=== PATIENT | male | born 1955 | race Caucasian/White ===

== ENCOUNTER 2019-08-05 17:21 | Observation (INO) | payer BC, SELFPAY ==
[2019-08-05] VITALS (10 sets, daily range): BP systolic 117–189; BP diastolic 82–107; PULSE 59–78; RESP 13–20; TEMP 36.6–36.8; O2SAT 97–100; BMI 28.5
--- NOTE | ~2019-08-05 | MR_ITS ---
EXAMINATION: MR brain/brain stem wo con EXAM DATE: 08/06/2019 17:31 INDICATION: Ataxia. TECHNIQUE: Magnetic resonance imaging (MRI) of the brain/brain stem obtained without contrast. Sagitt al T1, axial diffusion, gradient echo (T2*), T1, T2, FLAIR sequences obtained. There are no prior s tudies for comparison. FINDINGS: There are no areas of restricted diffusion to suggest acute infarction. There is no acute hemorrhage seen on the T2*, a hemosiderin sensitive sequence. No intraparenchymal brain mass lesion. 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 There is mild periventricular and subcortical T2/F LAIR signal hyperintensity, nonspecific but probably related to small vessel ischemic disease (microa ngiopathy). There are no extra-axial collections. Flow voids are seen in the cerebral arteries on t he T2-weighted sequences consistent with their expected patency. The orbits are unremarkable. Soft tissue is unremarkable. IMPRESSION: 1. 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 2. Mild microangiopathy. Reviewed, dictated and finalized at location A.
--- NOTE | ~2019-08-05 | XR_ITS ---
EXAMINATION: XR chest 1V portable DATE: 08/05/2019 19:24 INDICATION: Chest pain TECHNIQUE: frontal view of the chest was obtained. COMPARISON: Chest radiograph dated 03/09/2010 FINDINGS: Prior median sternotomy and left thoracotomy with multiple surgical clips along the left fourth inter costal space. Aortic valve repair. Multiple additional surgical clips in the region of the proximal d escending thoracic aorta. Lungs are clear with no focal airspace opacities, pulmonary edema, pleural effusion or pneumothorax. The cardiomediastinal silhouette is normal. IMPRESSION: 1. No acute cardiopulmonary disease. Reviewed, dictated and finalized at location A.
--- NOTE | ~2019-08-05 | CT_ITS ---
EXAMINATION: CTA BRAIN/CAROTID DATE: 08/05/2019 19:08 INDICATION: Dizziness. TECHNIQUE: Computed tomographic angiography (CTA) of the head and neck was performed with 100 mL Omni paque-350 intravenous contrast. Multiplanar reconstructions and maximum intensity projection 3D-recon structions of the carotid arteries and of the intracranial arteries were created by the technologist on a separate workstation. Precontrast CT of the head was also obtained. Automated exposure control and iterative reconstruction technique were employed.The dose-length product was 1758.30 mGy-cm. COMPARISON: None. FINDINGS: Carotid arteries: There is 0% stenosis of the right carotid bulb relative to normal distal artery lumen diameter (NASCE T criteria). There is 0% stenosis of the left carotid bulb relative to normal distal artery lumen kayden meter. 50-60% stenosis at the origin of the left vertebral artery. Multiple surgical clips along the aortic arch as well as a circumferential region of high attenuation material around the proximal desc ending thoracic aorta immediately after the takeoff of the left subclavian artery is likely related t o patient's reported history of prior aortic surgery. No evident ulceration, dissection or other irre gularity along the endothelial surface of the aorta. Cervical soft tissues and visualized upper lung zones are unremarkable. Head: No acute intracranial hemorrhage, acute infarction or abnormal extra axial fluid collection. Ventricl es are normal and symmetric. No mass/mass effect. The orbits, paranasal sinuses and mastoid air cells are normal. No abnormally enhancing lesions identified. Intracranial arteries Mild atherosclerotic plaque along the bilateral intracranial vertebral arteries and at the bilateral carotid siphons with <20%. There is no evident atherosclerosis along the basilar artery. Vertebral ar teries are codominant. There are no aneurysms identified. Both A1 and P1 segments are patent. Patent tiny anterior communicating artery. Cerebral arterial arborization appears symmetric. IMPRESSION: 1. 0% stenosis of the right and left carotid bulbs relative to normal distal artery lumen diameter (N ASCET criteria). 2. Mild atherosclerotic plaque without hemodynamically significant stenosis at the intracranial bilat eral vertebral and internal carotid arteries. 3. 50-60% stenosis at the origin of the left vertebral artery. 4. No acute intracranial process. Reviewed, dictated and finalized at location A. IMPRESSION: 1. 0% stenosis of the right and left carotid bulbs relative to normal distal ar xavier lumen diameter (NASCET criteria). 2. Mild atherosclerotic plaque without hemodynamically significant stenosis at the intracranial bilateral vertebral and internal carotid arteries. 3. 50-60% stenosis at the origin of the left vertebral artery. 4. No acute intracranial process.
--- NOTE | 2019-08-05 17:27 | ED.GENADULT ---
HPI - General Adult General Chief complaint: Chest Pain <Leanne Rushing MD - Last Filed: 08/05/19 18:56> Stated complaint: cp <Leanne Rushing MD - Last Filed: 08/05/19 18:56> Time Seen by Provider: 08/05/19 17:27 <Leanne Rushing MD - Last Filed: 08/05/19 18:56> Source: patient and EMS <Leanne Rushing MD - Last Filed: 08/05/19 18:56> Mode of arrival: EMS <Leanne Rushing MD - Last Filed: 08/05/19 18:56> Limitations: no limitations <Leanne Rushing MD - Last Filed: 08/05/19 18:56> History of Present Illness HPI narrative: Patient is a 64-year-old male who presents for evaluation of dizziness. Patient reports intermittent dizziness over the past week with associated chest pain that is also been intermittent over the past week. Patient states he was so dizzy today that he could not walk straight and thus sought care in the emergency department via EMS. Patient states the dizziness is worse with movement, describes as a spinning sensation. He reports weakness in his lower extremities. He denies fever, chills, he reports nausea without emesis. He reports decreased oral intake because of upset stomach, but denies abdominal pain. He reports intermittent chest pain, chest pain earlier this morning that has since resolved. No chest pain currently. Patient was given sublingual nitroglycerin and aspirin in route via EMS. Patient denies diaphoresis, cough, shortness of breath. No new medication changes. No diarrhea or painful urination. <Leanne Rushing MD - Last Filed: 08/05/19 18:56> Related Data Allergies/adverse reactions: Allergies Allergy/AdvReac Type Severity Reaction Status Date / Time No Known Allergies Allergy Verified 08/05/19 18:11 <Leanne Rushing MD - Last Filed: 08/05/19 18:56> Review of Systems Review of Systems: Narrative: CONSTITUTIONAL: Denies fever, chills, or sweats. EYES: Denies visual changes, redness, or discharge. ENT: Denies rhinorrhea, congestion, sore throat, or otalgia. CARDIOVASCULAR: Reports chest pain, currently resolved, denies palpitations or edema RESPIRATORY: Denies cough or dyspnea. GASTROINTESTINAL: Reports nausea, no vomiting or diarrhea GENITOURINARY: Denies dysuria or hematuria. SKIN: Denies rash or itching. MUSCULOSKELETAL: Denies back pain, joint pain, or myalgia. NEUROLOGIC: Denies headache, numbness, reports lower extremity weakness <Leanne Rushing MD - Last Filed: 08/05/19 18:56> [facility] Past Medical History Medical History: Medical History (Updated 08/05/19 @ 18:56 by Leanne Rushing MD) Hyperlipidemia Hypertension <Leanne Rushing MD - Last Filed: 08/05/19 18:56> Surgical History Surgical History: Surgical History (Updated 08/05/19 @ 17:38 by Leanne Rushing MD) Aortic valve replaced <Leanne Rushing MD - Last Filed: 08/05/19 18:56> Social History Social History: Social History (Updated 08/05/19 @ 17:39 by Leanne Rushing MD) Smoking status: Never smoker Alcohol intake: never Substance use: never Gender identity (if verbalized by the patient): Male <Leanne Rushing MD - Last Filed: 08/05/19 18:56> Exam Narrative: Exam Narrative: GENERAL: Awake, alert, conversant HEAD: Normocephalic, atraumatic. EYES: PERRLA and EOMI. ENT: Nares clear, no rhinorrhea or epistaxis. Mucous membranes moist. NECK: Supple. CHEST: No respiratory distress, breathing even and non labored HEART: Regular rate, sinus rhythm ABDOMEN:Non distended, non tender EXTREMITIES: Normal range of motion. No edema. SKIN: Warm, dry, no rash. NEURO:No focal deficits. Alert and oriented x3. Finger to nose intact bilaterally. EOMs intact without nystagmus. No facial droop/asymmetry noted bilaterally. Grimace intact. Intact sensation in face. Hearing intact bilaterally. Shoulder shrug intact. Strength 5/5 bilateral upper extremities. Strength 5/5 bilateral lower extremities. Reflexes 2+ patellar. Heel
--- NOTE | 2019-08-05 17:29 | ECG_ITS ---
Measurements Intervals [place] Rate: 70 P: 7 MS: 171 QRS: -35 QRSD: 83 T: 28 QT: 374 QTc: 405 Interpretive Statements SINUS RHYTHM BORDERLINE R WAVE PROGRESSION, ANTERIOR LEADS INFERIOR INFARCT, AGE INDETERMINATE ABNORMAL ECG Electronically Signed On 08-06-2019 7:36:39 CDT by Yovany Garcia D.O.
[2019-08-05 17:42] LABS: Basophils Percent Auto 0.5 % (0.2-1.2); Eosinophils Absolute Auto 0.1 K/mm3 (0-0.3); Hematocrit 37.9 % (42.0-52.0); Hemoglobin 12.4 g/dL (14.0-18.0); Immature Granulocyte Absolute 0.01 K/mm3 (0.00-0.031); Immature Granulocyte Percent A 0.3 % (0-0.5); Lymphocytes Absolute Auto 1.22 K/mm3 (0.9-3.2); Lymphocytes Percent Auto 30.9 % (18.3-44.2); Mean Corpuscular HGB Conc 32.7 g/dl (32-36); Mean Corpuscular Hemoglobin 29.2 pg (26-34); Mean Corpuscular Volume 89.2 fl (80-100); Mean Platelet Volume 11.4 fl (7.4-10.4); Monocytes Absolute Auto 0.4 K/mm3 (0.1-0.6); Monocytes Percent Auto 10.4 % (2.6-8.5); Neutrophils Absolute Auto 2.2 K/mm3 (1.3-6.7); Neutrophils Percent Auto 54.9 % (45.5-73.1); Platelet Count Result 128 k/mm3 (150-375); Red Blood Count 4.25 M/mm3 (4.6-6.20); Red Cell Distribution Width 14.2 % (11.5-14.5)
[2019-08-05 17:52] LABS: INR 1.3; Partial Thromboplastin Time 34.1 SECONDS (22.3-36.8)
[2019-08-05 17:54] LABS: Alanine Aminotransferase 72 U/L (4-50); Albumin Level 3.4 g/dL (3.5-5.1); Alkaline Phosphatase 126 U/L (38-126); Aspartate Amino Transferase 85 U/L (17-59); Bilirubin,Total 0.6 mg/dL (0.2-1.3); Blood Urea Nitrogen 12 mg/dL (9-20); Calcium 8.2 mg/dL (8.4-10.2); Carbon Dioxide 25 mmol/L (22-30); Chloride 109 mmol/L (98-107); Estimated Glomerular Filt Rate > 60; Glucose 126 mg/dL (75-110); Potassium 4.4 mmol/L (3.4-5.0); Sodium 137 mmol/L (137-145)
[2019-08-05] MEDS: SODIUM CHLORIDE 0.9% IV 1,000 ML 999 ML IV CONT ×2 (17:59→19:32)
[2019-08-05] MEDS: ONDANSETRON INJ 4 MG/2 ML VIAL IV PUSH (18:00)
[2019-08-05] MEDS: MECLIZINE HCL 25 MG TABLET PO (18:01)
[2019-08-05 18:05] LABS: Troponin I < 0.012 ng/mL (0.000-0.034)
--- NOTE | 2019-08-05 18:08 | PC.NURSE ---
Note pt actually arrived to ED RM 14 and initial note was written at 1656. Pt's registration number (V#) changed per ED Registration after charting was completed and unable to change time back to original arrival time.
--- NOTE | 2019-08-05 18:29 | PC.NURSE ---
Pt states that dizziness is improved and has no chest pain at present.
--- NOTE | 2019-08-05 18:46 | PC.NURSE ---
Pt returns from CT. Per photovoltaic technician pt had reported chest pain after receiving contrast dye. In to assess patient, reports is not having chest pain, but had a feeling move into my legs and reports this after receiving the dye. States has to urinate at present, but denies pain or shortness of breath.
[2019-08-05 19:11] LABS: Add Urine Microscopic? NO; Appearance Urine Clear (Clear); Bilirubin Urine Negative (Negative); Blood Urine Negative (Negative); Color Urine Colorless (Yellow); Glucose Urine UA Negative (Negative); Ketones Urine Negative (Negative); Leukocyte Esterase Ur Negative LEU/UL (Negative); Nitrate Urine Negative (Negative); Protein Urine Negative (Negative); Specific Grav Ur 1.019 (1.001-1.035); Urobilinogen Urine Negative mg/dL (<2.0)
--- NOTE | 2019-08-05 19:32 | PC.NURSE ---
Bedside report to ELIZABETH Umana, to continue care.
--- NOTE | 2019-08-05 20:01 | PC.NURSE ---
pt denies any cp at this time. md notified.
--- NOTE | 2019-08-05 21:20 | PC.NURSE ---
pt denies having any cp at this time.
[2019-08-05 21:33] LABS: Troponin I < 0.012 ng/mL (0.000-0.034)
--- NOTE | 2019-08-05 22:22 | ED.GENADULT ---
HPI - General Adult General Chief complaint: Chest Pain Stated complaint: cp Time Seen by Provider: 08/05/19 17:27 Source: patient and EMS Mode of arrival: EMS Limitations: no limitations Related Data Allergies Allergy/AdvReac Type Severity Reaction Status Date / Time No Known Allergies Allergy Verified 08/05/19 18:11 [facility] Past Medical History Medical History (Updated 08/05/19 @ 18:56 by Leanne Rushing MD) Hyperlipidemia Hypertension Surgical History Surgical History (Updated 08/05/19 @ 17:38 by Leanne Rushing MD) Aortic valve replaced Social History Social History (Updated 08/05/19 @ 17:39 by Leanne Rushing MD) Smoking status: Never smoker Alcohol intake: never Substance use: never Gender identity (if verbalized by the patient): Male Course Course Emergency Course: Care turned myself at shift change by Dr. Rushing seen and evaluated self. He has an initial H&P reviewed pain at this time lateral TMs are normal appearance Discussed with Dr. Roberts presentation work-up. Agrees with admission at this time with consult to cardiology in a.m. Discussed with patient and family results of workup and diagnosis. Discussed need for admission. Patient and family understand and agree to current treatment plan Vital Signs Vital signs: Vital Signs Temperature 98.2 F 08/05/19 17:53 Pulse Rate 72 08/05/19 17:53 Respiratory Rate 17 08/05/19 17:53 Blood Pressure 186/107 H 08/05/19 17:53 Pulse Oximetry 100 08/05/19 17:53 Temperature 98.2 F 08/05/19 17:53 Pulse Rate 72 08/05/19 21:20 Respiratory Rate 16 08/05/19 21:20 Blood Pressure 164/86 H 08/05/19 21:20 Pulse Oximetry 99 08/05/19 21:20 Medical Decision Making Vital Signs Vital Signs: Vital Signs Temperature 98.2 F 08/05/19 17:53 Pulse Rate 72 08/05/19 17:53 Respiratory Rate 17 08/05/19 17:53 Blood Pressure 186/107 H 08/05/19 17:53 Pulse Oximetry 100 08/05/19 17:53 Temperature 98.2 F 08/05/19 17:53 Pulse Rate 72 08/05/19 21:20 Respiratory Rate 16 08/05/19 21:20 Blood Pressure 164/86 H 08/05/19 21:20 Pulse Oximetry 99 08/05/19 21:20 Lab Data Result diagrams: 08/05/19 17:37 08/05/19 17:37 Labs: Lab Results 08/05/19 08/05/19 08/05/19 Range/Units 17:37 17:37 17:37 WBC 4.0 L (4.5-10.0) K/mm3 RBC 4.25 L (4.6-6.20) M/mm3 Hgb 12.4 L (14.0-18.0) g/dL Hct 37.9 L (42.0-52.0) % MCV 89.2 (80-100) fl MCH 29.2 (26-34) pg MCHC 32.7 (32-36) g/dl RDW 14.2 (11.5-14.5) % Plt Count 128 L (150-375) k/mm3 MPV 11.4 H (7.4-10.4) fl Immature Gran % (Auto) 0.3 (0-0.5) % Neut % (Auto) 54.9 (45.5-73.1) % Lymph % (Auto) 30.9 (18.3-44.2) % Charles % (Auto) 10.4 H (2.6-8.5) % Eos % (Auto) 3.0 (0-4.4) % Baso % (Auto) 0.5 (0.2-1.2) % Lymph # (Auto) 1.22 (0.9-3.2) K/mm3 Charles # (Auto) 0.4 (0.1-0.6) K/mm3 Eos # (Auto) 0.1 (0-0.3) K/mm3 Baso # (Auto) 0.0 (0.0-0.1) K/mm3 Abs Immat Gran (auto) 0.01 (0.00-0.031) K/mm3 Absolute Neuts (auto) 2.2 (1.3-6.7) K/mm3 Absolute Nucleated RBC 0.0 (0.0-0.012) K/mm3 Nucleated RBC % 0.0 (0.0-0.2) % PT 16.0 H (11.1-14.7) Seconds INR 1.3 APTT 34.1 (22.3-36.8) SECONDS Sodium 137 (137-145) mmol/L Potassium 4.4 (3.4-5.0) mmol/L Chloride 109 H (98-107) mmol/L Carbon Dioxide 25 (22-30) mmol/L BUN 12 (9-20) mg/dL Creatinine 0.60 L (0.7-1.3) mg/dL Estim Creat Clear Calc Not Reportable Estimated GFR > 60 (59 - ) Glucose 126 H (75-110) mg/dL Calcium 8.2 L (8.4-10.2) mg/dL Total Bilirubin 0.6 (0.2-1.3) mg/dL AST 85 H (17-59) U/L ALT 72 H (4-50) U/L Alkaline Phosphatase 126 (38-126) U/L Troponin I < 0.012 (0.000-0.034) ng/mL Total Protein 8.0 (6.3-8.2) g/dL Albumin 3.4 L (3.5-5.1) g/dL Urine Color (Yellow) Urine Appeara
--- NOTE | 2019-08-05 22:45 | PC.NURSE ---
pt denies any cp at this time, states he has a slight temporal martin, rates pain 05/14. md notified.
--- NOTE | 2019-08-05 23:54 | PC.NURSE ---
pt given medicine for martin, will continue to monitor.
[2019-08-05 23:59] LABS: Troponin I < 0.012 ng/mL (0.000-0.034)
[2019-08-06] VITALS (14 sets, daily range): BP systolic 118–147; BP diastolic 62–81; PULSE 51–98; RESP 16–18; TEMP 36.2–36.7; O2SAT 96–100
--- NOTE | 2019-08-06 00:12 | ADMGEN ---
This patient, Adair Hardy, was admitted to IMU Room 200-01. Patient/family oriented to hospital policies and general routines including ID bracelet, bed and alarms, visiting hours, pain management, procedures, bathroom and other care routines, personal items, smoking policy, room service/diet, and visiting hours. Valuables list has been completed. Information on how to activate the Rapid Response Team has been discussed. Patient/Family are encouraged to report perceived risks to care and to ask questions if they do not understand what they are told or what they should do.
[2019-08-06 04:38] LABS: Basophils Percent Auto 0.4 % (0.2-1.2); Eosinophils Absolute Auto 0.1 K/mm3 (0-0.3); Eosinophils Percent Auto 2.6 % (0-4.4); Hematocrit 35.3 % (42.0-52.0); Hemoglobin 11.5 g/dL (14.0-18.0); Immature Granulocyte Absolute 0.01 K/mm3 (0.00-0.031); Immature Granulocyte Percent A 0.2 % (0-0.5); Immature Platelet Fraction Pct 2.5 % (0.9-11.2); Lymphocytes Absolute Auto 1.71 K/mm3 (0.9-3.2); Lymphocytes Percent Auto 37.6 % (18.3-44.2); Mean Corpuscular HGB Conc 32.6 g/dl (32-36); Mean Corpuscular Hemoglobin 29.6 pg (26-34); Mean Platelet Volume 11.3 fl (7.4-10.4); Monocytes Absolute Auto 0.5 K/mm3 (0.1-0.6); Neutrophils Absolute Auto 2.2 K/mm3 (1.3-6.7); Neutrophils Percent Auto 48.2 % (45.5-73.1); Platelet Count Result 115 k/mm3 (150-375); Red Blood Count 3.88 M/mm3 (4.6-6.20); Red Cell Distribution Width 14.2 % (11.5-14.5); White Blood Count 4.6 K/mm3 (4.5-10.0)
[2019-08-06 04:53] LABS: Blood Urea Nitrogen 12 mg/dL (9-20); Calcium 7.5 mg/dL (8.4-10.2); Carbon Dioxide 25 mmol/L (22-30); Chloride 111 mmol/L (98-107); Estimated CRCL calculation 100 ml/min; Estimated Glomerular Filt Rate > 60; Glucose 125 mg/dL (75-110); Sodium 138 mmol/L (137-145)
--- NOTE | 2019-08-06 08:48 | PM.CNCAR ---
Assessment and Plan Additional Plan 64-year-old gentleman with an episode of chest pain last week symptoms are very atypical of angina. There is no evidence of an acute coronary syndrome by ECGs are biomarkers. Furthermore he indicates that he is known not to have coronary artery disease. He does have a complex history of aortic valve and aortic disease. We have none of those records therefore it is impossible to say anything further about that. The principal reason he came into the hospital was because of dizziness which does sound like positional vertigo to me. The primary service has not yet seen him. Further did plan and disposition are per the primary care service. He does not require further cardiac evaluation in my opinion and he does not require an ischemia workup since with he has ruled out for acute coronary syndrome and he is known not to have coronary artery disease. Since he is well established with the Department of Cardiology as [facility] it will not be my expectation that he will be requiring follow-up in our office after discharge Lux Joyce MD [facility] History of Present Illness History of Present Illness Consult date/time: Date of service: 08/06/19 08:48 Consult reason: chest pain Reason For Visit: cp,dizziness Narrative: This is a 64-year-old gentleman who is being seen at the request of the hospitalist because of chest pain. Patient came to the emergency room last evening not really complaining principally of chest pain but a dizziness. He states that he did have an episode of chest pain last week which he describes as an episode of pressure in the center of his chest or in the low substernal region which radiated down into his abdomen and also down into his legs. The episode was self-limited and did not create too much concern on his part because it was relatively mild. In addition to this he has been having episodes of what he describes as dizziness for about a week to 10 days. He states the symptoms started out as relatively mild and he did not wish to come to the hospital because of the danger of the Coronavirus. The symptoms were relatively severe yesterday he states he would had to hold onto the herrera in his home to keep from falling he has not fallen or lost consciousness but he felt dizzy and his family finally called an ambulance and he was brought here for further evaluation. Some of this dizziness he is describing sounds potentially like vertigo the sense of things spinning and aggravated by movement or change in position. Because of chest pain we have been consulted to see him. He does not generally have any history of exertional chest pain pressure or heaviness. He is a relatively active man of 64 years who does not exercise regularly for fitness but he does have an active lifestyle and does not experience chest pain with activity. He denies any sick symptoms of orthopnea PND edema or accumulating edema he does not have history of syncope. The patient does have a history apparently of disease of his aorta and aortic valve. 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 He states that he was found to have what sounds like aneurysm although I do not have any of those records there was some discussion of treating it endovascularly but he states it was not able to be treated in that fashion any had a major operation in his aorta. He then indicated number of years later approximately 4 years ago he had his aortic valve replaced also at [facility]. He does not take an anticoagulant so presumably he has a bioprosthetic valve. He does remember being told that at the time of his aortic valve replacement angiographically he did not have any coronary artery disease. His 12 lead ECG at [facility] is normal. His troponin levels are nega
[2019-08-06] MEDS: METOPROLOL TARTRATE 25 MG TABLET PO (10:32)
[2019-08-06 13:15] LABS: Alanine Aminotransferase 73 U/L (4-50); Albumin Level 3.5 g/dL (3.5-5.1); Alkaline Phosphatase 111 U/L (38-126); Aspartate Amino Transferase 80 U/L (17-59); Bilirubin,Total 0.4 mg/dL (0.2-1.3)
[2019-08-06] MEDS: ACETAMINOPHEN 325 MG TABLET 650 MG PO ×2 (14:30→20:20)
--- NOTE | 2019-08-06 18:58 | PM.SD ---
Same Day Admit/Disch: HPI History of Present Illness Chief complaint: cp,dizziness Narrative: Adair Hardy is a 64 year old male with significant aortic disease here for chest pain and dizziness. Patient developed dizziness 1 week ago after working out in the heat. This is associated with nausea. He has also been having chest pain that waxes and wanes in severity the past 7 days. 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 He has been having headache during this time period. He states he takes Advil and ibuprofen alternating but has done this for many years. He takes an aspirin a day. His symptoms actually improved the day before admission but on the day of admission patient developed worsening dizziness with nausea and noticed systolic blood pressure elevation 180. With the dizziness, he has trouble walking. He does complain of right ear pain. No fever or chills. He had a history of stroke 9 years ago with some mild left-sided weakness. He has had poor oral intake but has been able to drink fluids. The chest pain is a appears to be associated with pain all over. He denies any abdominal pain or diarrhea. No focal weaknesses in his extremities. He has left lower extremity tingling but this is chronic. No urinary symptoms. No diplopia but did have blurry vision a few days ago but this has improved. No hearing loss. No cough shortness of breath. Because of the worsening symptoms patient presented to the emergency room for evaluation. Patient had stroke-like symptoms 9 years ago and was transferred to [place]. 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 Aortic valve abnormality noted at that time but this was not repaired until 2016. Patient is followed by cardiology over [place] for this problem. He states he had a stress test about a year ago was negative. His last left heart catheterization 4 years ago was also clear. He has no history of coronary artery disease [facility] Surgical History Surgical History (Updated 08/05/19 @ 17:38 by Leanne Rushing MD) Aortic valve replaced Family History Family History (Updated 08/06/19 @ 19:08 by Gustavo Mosley MD) Mother Ovarian cancer Father Cirrhosis Other Unknown family medical history Social History Social History (Updated 08/06/19 @ 19:09 by Gustavo Mosley MD) Social History: Lifelong nonsmoker. No alcohol or drug use. Lives at home with his and daughter. Full code. He nominated his to be the individual would make medical decisions for him if he is unable. Smoking status: Never smoker Alcohol intake: never Substance use: never Substance use type: does not use Gender identity (if verbalized by the patient): Male Spiritual care concerns: No Same Day Admit/Disch: Med Pre-admit Medications Home Medications Medication Instructions Recorded Confirmed Type aspirin [Adult Low Dose Aspirin] 81 mg PO DAILY 08/06/19 08/06/19 History metoprolol tartrate 25 mg PO BID 08/06/19 08/06/19 History Exam Narrative: Exam Narrative: AF 97.5 141/78 65 16 98% ra Gen -well-nourished, well-developed male no acute distress nontoxic appearing. HEENT - NC/AT, PEERL, EOMI, Sclera clear and anicteric. Right TM retracted with purulent material. Left TM normal. Moist mucous membranes. Neck - supple, no masses Chest - CTA bilaterally, nml RR CV - RRR S1/S2 Abd - Soft, NT/ND, Positive BS Ext - No pedal edema Neuro - Alert and oriented. Strength is 5/5 in both upper and lower extremities. Cranial nerves 2-12 are intact. Gait was normal. He had some difficulty with left heel to choudhary as well as rapid alternating movements. Psych - Nml mood and affect Skin - Warm and dry DS: Data Data Completed and Pending Labs on day of discharge: Labs from last 24 hours 08/06/19 08/06/19 08/06/19 12:57 04:13 04:13 WBC 4
== END 2019-08-06 20:25 | disposition home or self-care (01) ==
LOC: ANHED 22:31 → ANHIMU 22:43
PROVIDERS: Emergency Medicine; Admitting Provider Internal Medicine; Emergency Provider Emergency Medicine; PCP Family Medicine; Visit Provider Internal Medicine
DX: R07.89 Other chest pain (principal); R42 Dizziness and giddiness; R74.0 Nonspecific elevation of levels of transaminase and lactic acid dehydrogenase [LDH]; D72.819 Decreased white blood cell count, unspecified; D69.6 Thrombocytopenia, unspecified; H66.91 Otitis media, unspecified, right ear; I10 Essential (primary) hypertension; E78.5 Hyperlipidemia, unspecified; Z95.4 Presence of other heart-valve replacement
CPT/HCPCS: 36415; 70496; 70498; 70551; 71045; 80048; 80053; 80076; 81003; 84484; 85025; 85055; 85610; 85730; 93005; 96361; 96374; 96375; 99285; A9270; G0378; G0379; J0131; J2405; J7030; Q9967

== ENCOUNTER 2020-05-26 22:46 | Emergency (ER) | payer BC, SELFPAY ==
[2020-05-26 22:50] VITALS: BP 176/85; PULSE 65; RESP 16; TEMP 36.5; O2SAT 99
--- NOTE | 2020-05-26 23:02 | ED.GENADULT ---
HPI - General Adult General Chief complaint: Abdominal Pain Stated complaint: 2nd covid shot/ head and stomach ache Time Seen by Provider: 05/26/20 22:56 History of Present Illness HPI narrative: Patient is a 65-year-old gentleman who presents to emergency department with chief complaint of chills body aches headache and nausea. Patient reports that he has dose of the Pfizer COVID-19 vaccine on Tuesday reports that he started having chills and body aches he has been taking ibuprofen for this. Patient states that today he developed headache with movements more frontal he reports some nausea with that and light bothering his eyes. Patient states his abdomen feels upset and feels as though he is nauseated. Patient states this is similar to whenever he had the initial dose of the Pfizer COVID-19 vaccine which she was sick for 4 days after the administration of the vaccine. The patient reports that he has not had COVID-19 previously. Related Data Home Medications Medication Instructions Recorded Confirmed aspirin [Adult Low Dose Aspirin] 81 mg PO DAILY 08/06/19 08/06/19 metoprolol tartrate 25 mg PO BID 08/06/19 08/06/19 Allergies Allergy/AdvReac Type Severity Reaction Status Date / Time No Known Allergies Allergy Verified 05/26/20 22:59 Review of Systems Review of Systems: Narrative: A 10 system review of systems was completed on the patient and is negative except for what is stated in the HPI. Nursing and ancillary documentation was reviewed. [facility] Past Medical History Medical History (Updated 05/27/20 @ 00:47 by Gustavo Reyes MD) Hyperlipidemia Hypertension Surgical History Surgical History Aortic valve replaced Family History Family History Mother Ovarian cancer Father Cirrhosis Other Unknown family medical history Social History Social History Social History: Lifelong nonsmoker. No alcohol or drug use. Lives at home with his and daughter. Full code. He nominated his to be the individual would make medical decisions for him if he is unable. Smoking status: Never smoker Alcohol intake: never Substance use: never Substance use type: does not use Gender identity (if verbalized by the patient): Male Spiritual care concerns: No Exam Narrative: Exam Narrative: GENERAL: Well-appearing, well-nourished, and in no acute distress. HEAD: Normocephalic, atraumatic. EYES: PERRLA and EOMI. ENT: Nares clear, no rhinorrhea or epistaxis. Mucous membranes moist. NECK: Supple. CHEST: Clear to auscultation. No respiratory distress. HEART: Regular rate and rhythm. No murmur heard. Normal peripheral pulses. ABDOMEN: Soft, nontender, nondistended, normal active bowel sounds. EXTREMITIES: Normal range of motion. No edema. SKIN: Warm, dry, no rash. NEURO: No focal deficits. Alert and oriented x3. PSYCH: Normal mood and affect. Course Vital Signs Vital signs: Vital Signs Temperature 36.5 C 05/26/20 22:50 Pulse Rate 65 05/26/20 22:50 Respiratory Rate 16 05/26/20 22:50 Blood Pressure 176/85 H 05/26/20 22:50 Pulse Oximetry 99 05/26/20 22:50 Temperature 36.5 C 05/26/20 22:50 Pulse Rate 65 05/26/20 22:50 Respiratory Rate 16 05/26/20 22:50 Blood Pressure 176/85 H 05/26/20 22:50 Pulse Oximetry 99 05/26/20 22:50 Medical Decision Making Vital Signs Vital Signs: Vital Signs Temperature 36.5 C 05/26/20 22:50 Pulse Rate 65 05/26/20 22:50 Respiratory Rate 16 05/26/20 22:50 Blood Pressure 176/85 H 05/26/20 22:50 Pulse Oximetry 99 05/26/20 22:50 Temperature 36.5 C 05/26/20 22:50 Pulse Rate 65 05/26/20 22:50 Respiratory Rate 16 05/26/20 22:50 Blood Pressure 176/85 H 05/26/20 22:50 Pulse Oximetry 99 0
[2020-05-26] MEDS: diphenhydrAMINE HCl INJ 50 MG/ML VIAL IV PUSH (23:15)
[2020-05-26] MEDS: SODIUM CHLORIDE 0.9% IV 1,000 ML 999 ML IV CONT (23:15)
[2020-05-26] MEDS: PROCHLORPERAZINE EDISYLATE 10 MG/2 ML VIAL IV PUSH (23:15)
[2020-05-26 23:25] LABS: Basophils Percent Auto 0.5 % (0.2-1.2); Eosinophils Absolute Auto 0.2 K/mm3 (0-0.3); Eosinophils Percent Auto 4.3 % (0-4.4); Hematocrit 37.2 % (42.0-52.0); Hemoglobin 12.1 g/dL (14.0-18.0); Immature Granulocyte Absolute 0.01 K/mm3 (0.00-0.031); Immature Granulocyte Percent A 0.2 % (0-0.5); Immature Platelet Fraction Pct 3.2 % (0.9-11.2); Lymphocytes Absolute Auto 1.25 K/mm3 (0.9-3.2); Lymphocytes Percent Auto 30.1 % (18.3-44.2); Mean Corpuscular HGB Conc 32.5 g/dl (32-36); Mean Corpuscular Hemoglobin 29.7 pg (26-34); Mean Corpuscular Volume 91.2 fl (80-100); Mean Platelet Volume 11.6 fl (7.4-10.4); Monocytes Absolute Auto 0.4 K/mm3 (0.1-0.6); Monocytes Percent Auto 10.4 % (2.6-8.5); Neutrophils Absolute Auto 2.3 K/mm3 (1.3-6.7); Neutrophils Percent Auto 54.5 % (45.5-73.1); Platelet Count Result 112 k/mm3 (150-375); Red Blood Count 4.08 M/mm3 (4.6-6.20); White Blood Count 4.2 K/mm3 (4.5-10.0)
[2020-05-26 23:35] LABS: Lactic Acid Reflex 1.1 mmol/L (0.7-2.1)
[2020-05-26 23:36] LABS: Alanine Aminotransferase 89 U/L (4-50); Albumin Level 3.3 g/dL (3.5-5.1); Alkaline Phosphatase 107 U/L (38-126); Anion Gap 3 mmol/L (8-16); Aspartate Amino Transferase 97 U/L (17-59); Bilirubin,Total 0.5 mg/dL (0.2-1.3); Blood Urea Nitrogen 14 mg/dL (9-20); Carbon Dioxide 25 mmol/L (22-30); Chloride 108 mmol/L (98-107); Estimated Glomerular Filt Rate > 60; Glucose 150 mg/dL (75-110); Potassium 3.9 mmol/L (3.4-5.0); Sodium 136 mmol/L (137-145)
[2020-05-26 23:49] LABS: Add Urine Microscopic? YES; Appearance Urine Clear (Clear); Bilirubin Urine Negative (Negative); Blood Urine Negative (Negative); Color Urine Yellow (Yellow); Glucose Urine UA Negative (Negative); Ketones Urine Negative (Negative); Leukocyte Esterase Ur Negative LEU/UL (Negative); Mucus Urine Rare /lpf; Nitrate Urine Negative (Negative); Protein Urine Negative (Negative); Specific Grav Ur 1.018 (1.001-1.035); WBC Urine 0-3 /hpf
[2020-05-27 01:36] VITALS: BP 162/79; PULSE 68; RESP 18; O2SAT 99
== END 2020-05-27 01:37 | disposition home or self-care (01) ==
PROVIDERS: Emergency Provider Emergency Medicine; PCP Family Medicine
DX: M79.10 Myalgia, unspecified site (principal); R51.9 Headache, unspecified; E78.5 Hyperlipidemia, unspecified; I10 Essential (primary) hypertension; Z95.2 Presence of prosthetic heart valve; Z79.82 Long term (current) use of aspirin
CPT/HCPCS: 36415; 80053; 81001; 83605; 85025; 85055; 96365; 96375; 99284; J0131; J0780; J1200; J7030

== ENCOUNTER 2023-02-11 14:27 | Emergency (ER) | payer MEDICARE, MEDICAID, SELFPAY ==
[2023-02-11] VITALS (65 sets, daily range): BP systolic 120–154; BP diastolic 53–81; PULSE 68–90; RESP 10–27; TEMP 36.6–36.9; O2SAT 95–100
--- NOTE | ~2023-02-11 | CT_ITS ---
EXAMINATION: CT abdomen pelvis w con DATE: 02/11/2023 15:50 INDICATION: Abdominal distention. Abdominal tenderness. Nausea, vomiting, and diarrhea. TECHNIQUE: Computed tomography (CT) of the abdomen and pelvis was performed with 100 mL Omnipaque 350 intravenous contrast. Automated exposure control and iterative reconstruction technique were employe d. The dose-length product was 750.64 mGy-cm. COMPARISON: None. FINDINGS: The visualized portions of the lung bases demonstrate mild atelectasis. No pleural effusion . Cardiomegaly is noted. There are changes of aortic valve replacement. No pericardial effusion. The liver demonstrates hypertrophy of left lateral segment and surface nodularity, consistent with cirrho sis. The gallbladder is normal in size. Gallbladder wall thickening is likely secondary to interstiti al edema and chronic liver disease. The spleen is mildly enlarged. There is wall thickening of the as cending colon and rectum. The appendix is not visualized. There is a moderate volume of ascites. Ther e are no pathologically enlarged lymph nodes. There is an umbilical hernia containing fat. There is m ild thoracic spondylosis and moderate lower lumbar spondylosis. IMPRESSION: 1. Cirrhosis of the liver with portal venous hypertension. 2. Moderate volume of ascites. 3. Wall thickening of the ascending colon and rectum, which may be interstitial edema or less likely colitis. Reviewed, dictated and finalized at location E. REVIEWER
--- NOTE | 2023-02-11 14:34 | ECG_ITS ---
Measurements Intervals [place] Rate: 85 P: 6 OR: 156 QRS: -25 QRSD: 78 T: -1 QT: 341 QTc: 406 Interpretive Statements SINUS RHYTHM LOW QRS VOLTAGE IN PRECORDIAL LEADS POSSIBLE ANTERIOR MYOCARDIAL INFARCTION , OF INDETERMINATE AGE INFERIOR MYOCARDIAL INFARCTION , PROBABLY OLD Electronically Signed On 02-12-2023 13:07:37 EXPORT TRAFFIC DEPARTMENT MANAGER by Wayne Roca M.D.
[2023-02-11 15:19] LABS: Basophils Percent Auto 0.5 % (0.2-1.2); Eosinophils Absolute Auto 0.1 K/mm3 (0-0.3); Eosinophils Percent Auto 3.7 % (0-4.4); Immature Granulocyte Absolute 0.05 K/mm3 (0.00-0.031); Immature Granulocyte Percent A 2.3 % (0-0.5); Immature Platelet Fraction Pct 6.9 % (0.9-11.2); Lymphocytes Absolute Auto 0.78 K/mm3 (0.9-3.2); Lymphocytes Percent Auto 35.9 % (18.3-44.2); Mean Corpuscular HGB Conc 30.6 g/dl (32-36); Mean Corpuscular Hemoglobin 30.5 pg (26-34); Mean Corpuscular Volume 99.4 fl (80-100); Monocytes Absolute Auto 0.2 K/mm3 (0.1-0.6); Monocytes Percent Auto 7.8 % (2.6-8.5); Neutrophils Absolute Auto 1.1 K/mm3 (1.3-6.7); Neutrophils Percent Auto 49.8 % (45.5-73.1); Platelet Count Result 32 k/mm3 (150-375); Red Blood Count 1.74 M/mm3 (4.6-6.20); Red Cell Distribution Width 22.9 % (11.5-14.5); White Blood Count 2.2 K/mm3 (4.5-10.0)
[2023-02-11 15:26] LABS: Alanine Aminotransferase 78 U/L (6-50); Albumin Level 3.1 g/dL (3.5-5.1); Alkaline Phosphatase 59 U/L (38-126); Anion Gap 7 mmol/L (8-16); Aspartate Amino Transferase 213 U/L (17-59); Bilirubin,Total 2.2 mg/dL (0.2-1.3); Blood Urea Nitrogen 42 mg/dL (9-20); Calcium 7.8 mg/dL (8.4-10.2); Carbon Dioxide 21 mmol/L (22-30); Chloride 110 mmol/L (98-107); Estimated CRCL calculation 51 ml/min; Estimated Glomerular Filt Rate > 60; Glucose 197 mg/dL (65-110); Lipase 119 U/L (23-300); Potassium 4.8 mmol/L (3.4-5.0); Sodium 138 mmol/L (137-145)
[2023-02-11] MEDS: ONDANSETRON INJ 4 MG/2 ML VIAL IV PUSH ×2 (15:26→17:23)
[2023-02-11 15:59] LABS: Hemoglobin 5.3 g/dL (14.0-18.0)
[2023-02-11 16:00] LABS: Hematocrit 17.3 % (42.0-52.0)
[2023-02-11 16:01] LABS: Anisocytosis 2+ (NORMAL); Hypochromasia 2+ (NORMAL); Platelet Estimate Decreased (Adequate); Poikilocytosis 1+ (NORMAL)
[2023-02-11 16:02] LABS: Schistocytes None Seen (NORMAL)
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
[2023-02-11 16:48] LABS: Immature Reticulocyte Fraction 16.3 % (3.0-15.9); Reticulocyte Hemoglobin Conten 37.8 pg (28.2-35.7); Reticulocyte Percent 0.65 % (0.7-4.3); Reticulocytes Absolute 0.01 M/mm3 (0.02-0.1)
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
[2023-02-11] MEDS: cefTRIAXone 2 GM/NS 100 ML 2 GM/100 ML BAG IVPB (17:14)
[2023-02-11 17:18] LABS: Appearance Urine Cloudy (Clear); Bacteria Urine None Seen /hpf; Bilirubin Urine 1+ (Negative); Blood Urine 3+ (Negative); Color Urine Dark Yellow (Yellow); Glucose Urine UA Negative (Negative); Ketones Urine Negative (Negative); Leukocyte Esterase Ur Trace LEU/UL (Negative); Need Manual Microscopic Reviewed; Nitrate Urine Negative (Negative); Protein Urine 1+ mg/dL (Negative); RBC Urine >100 /hpf (0-2); Squamous Epithelial Cell Urine Occasional /hpf (Few); WBC Urine 0-5 /hpf; pH Urine 5.5 (5.0-9.0)
[2023-02-11] MEDS: MORPHINE SULFATE (*CRX) 2 MG/ML INJ IV PUSH (17:19)
[2023-02-11 17:20] LABS: Ammonia 22 umol/L (9-30)
[2023-02-11 17:25] LABS: Iron 143 ug/dL (49-181)
[2023-02-11 17:35] LABS: Percent Iron Saturation 52 % (20-50)
[2023-02-11 17:41] LABS: Add Urine Microscopic? YES; Specific Grav Ur 1.048 (1.001-1.035)
[2023-02-11] MEDS: SODIUM CHLORIDE 0.9% IV 250 ML 30 ML IV CONT ×2 (17:55→22:20)
[2023-02-11 17:57] LABS: Hepatitis B Surface Antigen Negative (Negative)
[2023-02-11] MEDS: TUBING, BLOOD SET 1 EACH XX (17:57)
[2023-02-11 18:03] LABS: HAV RESULT Negative (Negative); Hepatitis B Core IgM Result Negative (Negative)
[2023-02-11] MEDS: PANTOPRAZOLE SODIUM IV 80 MG in SODIUM CHLORIDE 0.9% IV 500 ML 50 MG IV CONT (18:08)
[2023-02-11 18:15] LABS: Hepatitis C Virus Antibody Reactive (Negative)
[2023-02-11] MEDS: MORPHINE SULFATE (*CRX) 4 MG/ML INJ IV PUSH (18:18)
[2023-02-11 18:59] LABS: Creatine Kinase 33 U/L (55-170)
--- NOTE | 2023-02-11 19:33 | PC.NURSE ---
Report received from ELIZABETH Howe. Pt resting quietly with family at bedside. Blood and other meds infusing. VSS at this time.
[2023-02-11 20:25] LABS: INR 1.6; Partial Thromboplastin Time 35.6 SECONDS (22.3-36.8); Prothrombin Time 20.3 Seconds (11.1-14.7)
--- NOTE | 2023-02-11 22:18 | PC.NURSE ---
Report given to ELIZABETH Ceja at transfer center for [facility]. Pt to go to [facility] via EMS when available. Pt and family updated.
[2023-02-12] VITALS (14 sets, daily range): BP systolic 130–138; BP diastolic 68–76; PULSE 80–88; RESP 7–21; TEMP 36.6–37.1; O2SAT 97–100
[2023-02-12] MEDS: TUBING, BLOOD SET 1 EACH XX (01:43)
[2023-02-12] MEDS: ONDANSETRON INJ 4 MG/2 ML VIAL IV PUSH (02:04)
[2023-02-12] MEDS: HYDROmorphone HCL INJ (*CRX) 1 MG/ML SYR 0.5 MG IV PUSH (02:04)
--- NOTE | 2023-02-12 02:25 | PC.NURSE ---
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 Pt requesting more pain and nausea meds. MICHELE from Dr Larsen. Meds administered per MAY. Family here at bedside and aware of transfer.
[2023-02-14 16:47] LABS: Hepatitis C RNA, Quant PCR 5530000 IU/mL
== END 2023-02-12 02:26 | disposition short-term general hospital (02) ==
PROVIDERS: Emergency Medicine; Emergency Provider Student in an Organized Health Care Education/Training Program; PCP Family Medicine
DX: K74.60 Unspecified cirrhosis of liver (principal); R18.8 Other ascites; D61.818 Other pancytopenia; K92.2 Gastrointestinal hemorrhage, unspecified; E78.5 Hyperlipidemia, unspecified; I10 Essential (primary) hypertension; Z95.2 Presence of prosthetic heart valve; Z86.73 Personal history of transient ischemic attack (TIA), and cerebral infarction without residual deficits; Z87.891 Personal history of nicotine dependence; Z79.82 Long term (current) use of aspirin; K76.6 Portal hypertension; R94.31 Abnormal electrocardiogram [ECG] [EKG]
CPT/HCPCS: 36415; 36430; 74177; 80053; 80074; 81001; 82140; 82550; 83540; 83550; 83690; 85014; 85018; 85025; 85046; 85055; 85610; 85730; 86850; 86900; 86901; 86923; 87522; 93005; 96365; 96366; 96368; 96375; 96376; 99285; C9113; J0696; J1170; J2270; J2354; J2405; J7040; J7050; P9016; P9034; Q9967

== ENCOUNTER 2023-02-27 12:53 | Inpatient (IN) | payer MEDICARE, MEDICAID, SELFPAY ==
--- NOTE | ~2023-02-27 | XR_ITS ---
XR chest 2V 02/27/2023 18:16 Indication: Syncope Procedure: AP and lateral views of the chest Comparison: 08/05/2019 Findings: Status post median sternotomy for CABG. There is a prosthetic aortic valve. Heart size norm al. There is a left thoracotomy defect. No focal air space disease, pulmonary edema, pleural effusion or suspected pneumothorax. Impression: 1: No acute cardiopulmonary disease. Reviewed, dictated and finalized at location A. FALLER Impression: 1: No acute cardiopulmonary disease.
--- NOTE | 2023-02-27 12:55 | ECG_ITS ---
Measurements Intervals [place] Rate: 66 P: 12 ME: 173 QRS: -26 QRSD: 81 T: -4 QT: 395 QTc: 414 Interpretive Statements SINUS RHYTHM POSSIBLEOLD INFERIOR MYOCARDIAL INFARCTION COMPARED TO ECG 02/11/2023 14:34:25 NO SIGNIFICANT CHANGES Electronically Signed On 02-27-2023 17:13:36 MARBLE POLISHER by Qi Giron M.D.
[2023-02-27 13:07] VITALS: BP 98/51; PULSE 67; RESP 20; TEMP 36.3; O2SAT 99
[2023-02-27 13:38] VITALS: BP 98/62; PULSE 66; RESP 18; O2SAT 98
[2023-02-27 13:40] LABS: Alanine Aminotransferase 51 U/L (6-50); Albumin Level 3.1 g/dL (3.5-5.1); Alkaline Phosphatase 68 U/L (38-126); Anion Gap 3 mmol/L (8-16); Aspartate Amino Transferase 65 U/L (17-59); Bilirubin,Total 1.9 mg/dL (0.2-1.3); Blood Urea Nitrogen 30 mg/dL (9-20); Calcium 7.9 mg/dL (8.4-10.2); Carbon Dioxide 29 mmol/L (22-30); Chloride 105 mmol/L (98-107); Estimated CRCL calculation 44 ml/min; Estimated Glomerular Filt Rate 51; Glucose 120 mg/dL (65-110); Potassium 4.5 mmol/L (3.4-5.0); Sodium 137 mmol/L (137-145)
[2023-02-27] MEDS: SODIUM CHLORIDE 0.9% IV 1,000 ML 999 ML IV CONT (13:40)
[2023-02-27 13:41] LABS: Hematocrit 26.1 % (42.0-52.0); Hemoglobin 8.4 g/dL (14.0-18.0); Immature Platelet Fraction Pct 4.8 % (0.9-11.2); Mean Corpuscular HGB Conc 32.2 g/dl (32-36); Mean Corpuscular Hemoglobin 30.1 pg (26-34); Mean Corpuscular Volume 93.5 fl (80-100); Platelet Count Result 53 k/mm3 (150-375); Red Blood Count 2.79 M/mm3 (4.6-6.20); Red Cell Distribution Width 17.9 % (11.5-14.5)
[2023-02-27 13:42] LABS: White Blood Count 1.4 K/mm3 (4.5-10.0)
[2023-02-27 14:01] LABS: Lymphocytes Absolute Manual 0.81 K/mm3 (1.1-4.5); Monocytes Absolute Manual 0.08 K/mm3 (0.1-0.90); Monocytes Percent Manual 6 % (3-9); Neutrophils Percent Manual 36 % (46-73); Total Cells Counted 100
[2023-02-27 14:02] LABS: Platelet Estimate Decreased (Adequate)
[2023-02-27 14:03] LABS: Anisocytosis 1+ (NORMAL); Hypochromasia 2+ (NORMAL); Schistocytes Rare (NORMAL)
[2023-02-27 14:04] LABS: Poikilocytosis 1+ (NORMAL)
--- NOTE | 2023-02-27 15:59 | ED.SYNCOPE ---
HPI - Syncope General Chief Complaint: Syncope Stated Complaint: syncopal episodes Time Seen by Provider: 02/27/23 13:35 History of Present Illness HPI narrative: Patient is a 67-year-old male who presents ER with full syncope. Reports he got up today bathroom felt lightheaded and lost consciousness. Patient recently diagnosis cirrhosis and hepatitis-C. He is being treated in [facility]. He also had esophageal varices that were bleeding that had to be cauterized. He reports he no longer has dark colored stools. Reports poor oral intake recently. Denies fevers or chills or sweats. No chest pain or chest pressure. He is without abdominal pain. Has follow-up with his GI doctor in late March. Related Data Home Medications Medication Instructions Recorded Confirmed Gas Relief Extra Strength 1 tablet PO PRN PRN gas relief 02/27/23 02/27/23 aluminum hydrox-magnesium carb 1 tablet PO PRN PRN Acid Reflux 02/27/23 02/27/23 chewable tablet carvedilol 12.5 mg tablet 12.5 mg PO BID 02/27/23 02/27/23 furosemide 40 mg tablet 40 mg PO DAILY 02/27/23 02/27/23 pantoprazole 40 mg tablet,delayed 40 mg PO DAILY 02/27/23 02/27/23 release spironolactone 25 mg tablet 25 mg PO DAILY 02/27/23 02/27/23 sucralfate 1 gram tablet 1 g PO DAILY PRN Acid Reflux 02/27/23 02/27/23 Allergies Allergy/AdvReac Type Severity Reaction Status Date / Time No Known Allergies Allergy Verified 02/27/23 13:10 Review of Systems Review of Systems: All systems reviewed & are unremarkable except as noted in HPI and below Constitutional: Constitutional: Denies chills, Denies fatigue and Denies fever(s) ENT: Denies nasal congestion and Denies sore throat Cardiovascular: Cardiovascular: Reports no additional cardiovascular complaints Respiratory: Respiratory: Reports no additional respiratory complaints Gastrointestinal: Gastrointestinal: Reports no additional gastrointestinal complaints Neurologic: Reports syncope, Denies headache(s), Denies focal weakness and Denies numbness PMFSH Past Medical History Medical History (Updated 02/27/23 @ 22:10 by Galen Barrera MD) Esophageal varices Hepatitis C Hyperlipidemia Hypertension Pancytopenia Stroke Surgical History Surgical History (Updated 02/27/23 @ 16:01 by Galen Barrera MD) History of esophagogastroduodenoscopy (EGD) Social History Social History (Updated 08/05/19 @ 17:20 by Leanne Rushing MD) Smoking status: Never smoker Alcohol intake: former Substance use: never Do You Feel Safe in your Home?: Yes Lack of Transportation: No Lack of Food: Never True Current Housing: I Have Housing Concerned About Future Housing: No Difficulty Paying Gas/Electric Bills: No Difficulty Paying for Meds: No Currently Unemployed: No Education: Decline to Answer Difficulty w/ Childcare or Family Care: No Gender identity (if verbalized by the patient): Male Spiritual care concerns: No Exam Narrative: GENERAL: Well-appearing, well-nourished, and in no acute distress. HEAD: Normocephalic, atraumatic. EYES: PERRL and EOMI. ENT: Mucous membranes moist. CHEST: Clear to auscultation. No respiratory distress. HEART: Regular rate and rhythm. Normal peripheral pulses. ABDOMEN: Soft, nontender, nondistende EXTREMITIES: Normal range of motion. No edema. SKIN: Warm, dry, no rash. NEURO: Alert and oriented x3. PSYCH: Normal mood and affect. Course Course Emergency Course: patient resting comfortably. Patient with absolute neutrophil count of 504 however hydration could potentially skin this into severe neutropenic area. Patient without fever however he has been hypotensive. It is possible he has been over diuresed with her medications but he could potentially have infection brewing. Admit for observation, he will receive additional fluid and blood cultures. No antibiotics at this time. Vital Signs Vital signs: Vital Signs Temperatur
[2023-02-27 17:55] VITALS: BP 116/61; PULSE 66; RESP 18; O2SAT 99
[2023-02-27 19:00] VITALS: BP 152/80; PULSE 88; RESP 12; O2SAT 100
--- NOTE | 2023-02-27 19:06 | PM.IMHP ---
H&P: HPI History of Present Illness Date/Time: 02/27/23 21:00 Chief Complaint: Syncope. Narrative: This is a pleasant 67-year-old male with history of bioprosthetic bovine aortic valve replacement, aortic dissection repair, stroke, hypertension, hepatitis C, cirrhosis, pancytopenia, and recent GI bleed due to varices who presented to the emergency department for evaluation after a syncopal episode. The patient provides the following history. He was seen in the emergency department here at [place] on 02/11/2023 with abdominal pain, nausea, and vomiting at which time he was transferred to [facility] after he was found to have several concerning findings including pancytopenia with evidence of GI bleed. According to the patient he was found to have bleeding varices which were clipped and it was at that time that he was diagnosed with hepatitis C and cirrhosis. He was discharged home a week thereafter on several medications new to him including spironolactone, furosemide, carvedilol, and pantoprazole. He has been doing well and has not noticed any dark stools. The last couple of days however he has been feeling lightheaded and dizzy, mainly upon standing. Not long prior to arrival to the ED, he got up to go to the bathroom and had a syncopal episode and his called 911. There was no injury or head trauma, luckily. He was hypotensive in triage and EMS reports that he was orthostatic on their exam. Labs were significant for WBC count of 1.4, hemoglobin 8.4, platelet 53, BUN 30, creatinine 1.40. He was given a L of normal saline and he is being admitted in this setting for further hydration and close monitoring. He denies fever, chills, sweats, sinus congestion, sore throat, epigastric pain, abdominal pain, bloating, nausea, vomiting, diarrhea, and dysuria. He has not noticed a decrease in urine output. Review of Systems Review of Systems: Twelve systems were reviewed and are negative except for as per HPI. [facility] Past Medical History Medical History (Updated 02/27/23 @ 23:29 by Monica Corley PA-C) Cirrhosis Esophageal varices Hepatitis C Hyperlipidemia Hypertension Pancytopenia Stroke Surgical History Surgical History (Updated 02/27/23 @ 23:27 by Monica G Gerling, PA-C) History of aortic valve replacement with bioprosthetic valve History of esophagogastroduodenoscopy (EGD) Status post aortic dissection repair Family History Family History (Updated 02/27/23 @ 23:27 by Monica Corley PA-C) Other Hypertension Liver disease Social History Social History (Updated 02/27/23 @ 23:28 by Monica Corley PA-C) Social History: Surrogate medical decision maker: Racheal Hardy, spouse. Code status: Full code. Smoking status: Never smoker Alcohol intake: former Alcohol use details: No alcohol 12 years. Substance use: never Do You Feel Safe in your Home?: Yes Lack of Transportation: No Lack of Food: Never True Current Housing: I Have Housing Concerned About Future Housing: No Difficulty Paying Gas/Electric Bills: No Difficulty Paying for Meds: No Currently Unemployed: No Education: Decline to Answer Difficulty w/ Childcare or Family Care: No Additional living arrangements comments: Lives with spouse in [place]. Additional occupation/education comments: Retired. Spiritual care concerns: No Meds Home Medications and Allergies Home Medications Medication Instructions Recorded Confirmed Type Gas Relief Extra Strength 1 tablet PO PRN PRN gas relief 02/27/23 02/27/23 History aluminum hydrox-magnesium carb 1 tablet PO PRN PRN Acid Reflux 02/27/23 02/27/23 History chewable tablet carvedilol 12.5 mg tablet 12.5 mg PO BID 02/27/23 02/27/23 History furosemide 40 mg tablet 40 mg PO DAILY 02/27/23 02/27/23 History pantoprazole 40 mg tablet,delayed 40 mg PO DAILY 02/27/23 02/27/23 History release spironolactone 25 mg tablet 25 mg PO DAILY 02/27/23
[2023-02-27 19:10] LABS: Appearance Urine Clear (Clear); Bacteria Urine None Seen /hpf; Bilirubin Urine Negative (Negative); Color Urine Yellow (Yellow); Glucose Urine UA Negative (Negative); Ketones Urine Negative (Negative); Leukocyte Esterase Ur Negative LEU/UL (Negative); Nitrate Urine Negative (Negative); Protein Urine Negative (Negative); Specific Grav Ur 1.011 (1.001-1.035); Squamous Epithelial Cell Urine None seen /hpf (Few); WBC Urine 0-5 /hpf; pH Urine 6.5 (5.0-9.0)
[2023-02-27 19:13] LABS: Add Urine Microscopic? YES
[2023-02-27 19:14] VITALS: BP 105/53; PULSE 71; RESP 18; TEMP 36.3; O2SAT 100; BMI 25.7
--- NOTE | 2023-02-27 19:43 | ADMGEN ---
This patient, Adair Hardy, was admitted to 2 Medical Room 241-. Patient/family oriented to hospital policies and general routines including ID bracelet, bed and alarms, visiting hours, pain management, procedures, bathroom and other care routines, personal items, smoking policy, room service/diet, and visiting hours. Information on how to activate the Rapid Response Team has been discussed. Patient/Family are encouraged to report perceived risks to care and to ask questions if they do not understand what they are told or what they should do.
[2023-02-27 20:00] VITALS: PULSE 73
[2023-02-27] MEDS: SODIUM CHLORIDE 0.9% IV 1,000 ML 125 ML IV CONT (21:11)
[2023-02-28] VITALS (20 sets, daily range): BP systolic 96–136; BP diastolic 40–72; PULSE 66–79; RESP 16–18; TEMP 36.4–36.9; O2SAT 97–99
[2023-02-28 06:05] LABS: Hematocrit 23.9 % (42.0-52.0); Hemoglobin 7.6 g/dL (14.0-18.0); Immature Platelet Fraction Pct 5.2 % (0.9-11.2); Mean Corpuscular HGB Conc 31.8 g/dl (32-36); Mean Corpuscular Hemoglobin 30.2 pg (26-34); Mean Corpuscular Volume 94.8 fl (80-100); Platelet Count Result 47 k/mm3 (150-375); Red Blood Count 2.52 M/mm3 (4.6-6.20); Red Cell Distribution Width 17.9 % (11.5-14.5)
[2023-02-28 06:08] LABS: Alanine Aminotransferase 43 U/L (6-50); Albumin Level 2.7 g/dL (3.5-5.1); Alkaline Phosphatase 62 U/L (38-126); Anion Gap 3 mmol/L (8-16); Aspartate Amino Transferase 52 U/L (17-59); Bilirubin,Total 1.6 mg/dL (0.2-1.3); Blood Urea Nitrogen 27 mg/dL (9-20); Calcium 7.6 mg/dL (8.4-10.2); Carbon Dioxide 29 mmol/L (22-30); Chloride 107 mmol/L (98-107); Estimated CRCL calculation 47 ml/min; Estimated Glomerular Filt Rate 55; Glucose 108 mg/dL (65-110); Magnesium 2.1 mg/dL (1.6-2.3); Sodium 139 mmol/L (137-145)
[2023-02-28] MEDS: SODIUM CHLORIDE 0.9% IV 1,000 ML 75 ML IV CONT (06:23)
[2023-02-28 06:24] LABS: White Blood Count 1.5 K/mm3 (4.5-10.0)
[2023-02-28] MEDS: carvediloL 12.5 MG TABLET PO ×2 (09:17→21:02)
[2023-02-28] MEDS: PANTOPRAZOLE 40 MG TABLET PO (09:18)
[2023-02-28] MEDS: ACETAMINOPHEN 325 MG TABLET 650 MG PO (09:25)
[2023-02-28 10:16] LABS: Monocytes Absolute Manual 0.06 K/mm3 (0.1-0.90); Monocytes Percent Manual 4 % (3-9); Neutrophils Percent Manual 36 % (46-73); Total Cells Counted 100
[2023-02-28 10:17] LABS: Anisocytosis 1+ (NORMAL); Hypochromasia 2+ (NORMAL); Platelet Estimate Decreased (Adequate); Schistocytes Rare (NORMAL)
[2023-02-28 10:31] LABS: INR 1.7; Prothrombin Time 20.7 Seconds (11.1-14.7)
[2023-02-28 10:32] LABS: Partial Thromboplastin Time 41.3 SECONDS (22.3-36.8)
--- NOTE | 2023-02-28 10:32 | PC.NURSE ---
Patient not allowing SURFACE GRINDER TENDER /nurse to standby while using bedside commode. Patient admitted with fall. Orthostatic BP this AM as follows: 113/60, 103/57, 96/45. Patient not complaining of dizziness/lightheadedness. Pt allowing staff to place him on a bed alarm, but refuses help using the commode. Educated patient on risk for falls and serious injury r/t orthostatic hypotension and recent fall. Patient verbalized understanding and still refuses standby assistance when using restroom.
--- NOTE | 2023-02-28 10:57 | PM.IMPN ---
Progress Note: A&P Assessment and Plan (1) Syncope: Code(s): R55 - Syncope and collapse Status: Acute Assessment and Plan: Patient presents to the ED on 02/27/2023 due to syncope. Patient was sitting down when he had syncopal episode. He did not hit his head or fall to the ground during this event. Echocardiogram ordered Monitor on telemetry overnight to rule out cardiac dysrhythmia though that seems unlikely. (2) Orthostatic hypotension: Code(s): I95.1 - Orthostatic hypotension Status: Acute Assessment and Plan: He has positive orthostatic vital signs and is dehydrated, likely due to over-diuresis as he was recently started on both furosemide and spironolactone for his cirrhosis and ascites. Orthostatic vitals Q shift patient rehydrated. (3) Dehydration: Code(s): E86.0 - Dehydration Status: Acute Assessment and Plan: Patient recently started on furosemide and spironolactone for cirrhosis and ascites. Patient's creatinine on presentation was 1.4. IV fluids were given. (4) Pancytopenia: Code(s): D61.818 - Other pancytopenia Status: Acute Assessment and Plan: He has pancytopenia which is likely due to his underlying liver disease. This has been worked up at outside hospital. Patient has appointment with GI/ electronics parts sales representative coming up (5) Neutropenia: Code(s): D70.9 - Neutropenia, unspecified Status: Acute Assessment and Plan: WBC count is lower than what he typically runs and he does have a mild neutropenia. He gives no history to suggest underlying infection and is afebrile. Continue to monitor closely for the development of fever with low threshold to start empiric antibiotics. blood cultures ordered (6) Cirrhosis: Code(s): K74.60 - Unspecified cirrhosis of liver Status: Acute Assessment and Plan: GI consulted. stable for now. (7) Anemia: Code(s): D64.9 - Anemia, unspecified Status: Acute Assessment and Plan: Patient was recently treated for an acute GI bleed in [place]. He was found to have bleeding varices which were clipped. On arrival to the ED patient's hemoglobin was 8.4. This could be due to dilution from IV fluids. Will put IV fluids on hold for now and continue to monitor blood pressure during this time and repeat an H&H. Patient denies dark stools or bharat blood in his stools. Will monitor H&H Q 6 hours Repeat hemoglobin was 7.4. Anemia labs ordered Patient's hypotension, dizziness and kidney injury could all be due to acute anemia and hypoperfusion. Will treat with 1 unit of PRBCs. Recheck hemoglobin 1 hour after transfusion. Subjective Date/time seen: 02/28/23 10:57 Interval history: patient doing well this morning. He does state that he has had some intermittent lightheadedness but otherwise feeling well. Discussed the labs with the patient. There is concern that hemoglobin is dropping. This could be dilutional as it was explained to the patient but will put IV fluids on hold as well as monitor blood pressures at this time. Monitor H&H closely. Patient denies shortness of breath, heart palpitations, visual changes and chest pain. Exam Narrative: GENERAL: Comfortable, no acute distress HENMT: moist mucous membranes EYES: EOM intact b/l NECK: no lymphadenopathy RESPIRATORY: clear to auscultation CARDIO: RRR GI: soft, nontender, bowel sounds present SKIN: no rashes EXTREMITIES: no edema, redness or tenderness Objective Data Vital Signs Vital Signs: Vital Signs - 24 hr 02/27/23 13:07 02/27/23 13:38 02/27/23 17:55 Temperature 97.3 F L Pulse Rate 67 66 66 Respiratory Rate 20 18 18 Blood Pressure 98/51 L 98/62 L 116/61 Pulse Oximetry 99 98 99 Oxygen Delivery Room Air 02/27/23 19:00 02/27/23 19:14 02/27/23 20:00 Temperature 97.3 F L Pulse Rate 88 71 73 Respiratory Rate 12 18 Blood Pre
[2023-02-28] MEDS: SUCRALFATE 1 GM TABLET PO (11:08)
[2023-02-28 11:53] LABS: Hematocrit 23.3 % (42.0-52.0); Hemoglobin 7.4 g/dL (14.0-18.0)
[2023-02-28] MEDS: MIDODRINE HCL 10 MG TABLET PO ×2 (12:33→18:29)
--- NOTE | 2023-02-28 13:33 | WPDGICN ---
Assessment and Plan Assessment and plan (1) Orthostatic hypotension: Code(s): I95.1 - Orthostatic hypotension Status: Acute Assessment and Plan: denies gib, had recent EGD (will try to get records) treated with fluids, discontinue diuretics (creatinine 1.4 and better now) (2) Chronic hepatitis C with cirrhosis: Code(s): B18.2 - Chronic viral hepatitis C; K74.60 - Unspecified cirrhosis of liver Status: Acute Assessment and Plan: will need treatment and follow-up with sports management professor- he has appt next month (3) Pancytopenia: Code(s): D61.818 - Other pancytopenia Status: Acute Assessment and Plan: probably from cirrhosis/portal hypertension monitor (4) Syncope: Code(s): R55 - Syncope and collapse Status: Acute Assessment and Plan: resolved monitor and supportive care (5) Dehydration: Code(s): E86.0 - Dehydration Status: Acute GI Consult Note Consult date/time: 02/28/23 13:33 Reason for consult: hcv cirrhosis HPI: Adair Hardy is a 67 year old male with?history of bioprosthetic bovine aortic valve replacement, aortic dissection repair, stroke, hypertension, newly diagnosed of hepatitis C cirrhosis after he presented to ER 02/11/23 also had UGIB and transferred to [place], he also found to have pancytopenia and ascites, underwent paracentesis and EGD (I do not have findings ? varices) and required about 7 days hospitalization, sent home with diuretics, he is to have follow-up with GI next month, he has not started treatment for HCV and denies alcohol abuse or previous illicits. He came here after a syncopal episode when he was walking at home and was lightheaded. Denies melena or signs of bleeding.Labs were significant for WBC count of 1.4, hemoglobin 8.4, platelet 53, BUN 30, creatinine 1.40. Review of Systems Constitutional: Constitutional: Reports fatigue Eyes: Eyes: Denies blurry vision ENT: Reports Normal hearing present Cardiovascular: Cardiovascular: Denies chest pain Respiratory: Respiratory: Denies cough Gastrointestinal: Gastrointestinal: Denies melena and Denies hematemesis Genitourinary: Genitourinary: Denies flank pain Musculoskeletal: Musculoskeletal: Denies neck pain Integumentary/Breasts: Skin/Breast: Denies rash Neurologic: Denies Abnormal speech present Psychiatric: Psychiatric: Denies confusion [facility] Past Medical History Medical History (Updated 02/28/23 @ 13:39 by Kyle Saleh MD) Chronic hepatitis C with cirrhosis Cirrhosis Esophageal varices Hepatitis C Hyperlipidemia Hypertension Pancytopenia Stroke Surgical History Surgical History (Updated 02/27/23 @ 23:27 by Monica Corley PA-C) History of aortic valve replacement with bioprosthetic valve History of esophagogastroduodenoscopy (EGD) Status post aortic dissection repair Family History Family History (Updated 02/27/23 @ 23:27 by Monica Corley PA-C) Other Hypertension Liver disease Social History Social History (Updated 02/27/23 @ 23:28 by Monica Corley PA-C) Social History: Surrogate medical decision maker: Racheal Hardy, spouse. Code status: Full code. Smoking status: Never smoker Alcohol intake: former Alcohol use details: No alcohol 12 years. Substance use: never Do You Feel Safe in your Home?: Yes Lack of Transportation: No Lack of Food: Never True Current Housing: I Have Housing Concerned About Future Housing: No Difficulty Paying Gas/Electric Bills: No Difficulty Paying for Meds: No Currently Unemployed: No Education: Decline to Answer Difficulty w/ Childcare or Family Care: No Additional living arrangements comments: Lives with spouse in [place]. Additional occupation/education comments: Retired. Spiritual care concerns: No Meds Home Medications and Allergies Home Medications Medication Instructions Recorded Confirmed
[2023-02-28] MEDS: SODIUM CHLORIDE 0.9% IV 250 ML 30 ML IV CONT (15:51)
[2023-02-28 15:56] LABS: IFOB Positive Control Positive; Immunochemical Fecal Occult Bl Positive (N)
[2023-02-28 20:07] LABS: Hematocrit 31.1 % (42.0-52.0); Hemoglobin 9.9 g/dL (14.0-18.0)
[2023-02-28 20:39] LABS: Iron 187 ug/dL (49-181)
[2023-02-28 20:45] LABS: Transferrin 160 mg/dL (206-381)
[2023-02-28 20:49] LABS: Percent Iron Saturation 84 % (20-50)
[2023-02-28 21:44] LABS: Folic Acid 10.2 ng/mL (2.76->20); Vitamin B12 < 159.0 pg/mL (239-931)
[2023-02-28] MEDS: MELATONIN 3 MG TABLET PO (22:38)
[2023-03-01] VITALS (15 sets, daily range): BP systolic 96–126; BP diastolic 42–72; PULSE 56–70; RESP 12–18; TEMP 36.4–36.9; O2SAT 96–99; BMI 26.6
[2023-03-01 01:11] LABS: Hematocrit 26.4 % (42.0-52.0); Hemoglobin 8.4 g/dL (14.0-18.0)
--- NOTE | 2023-03-01 05:56 | P.PNIM_ITS ---
Progress Note: A&P Assessment and Plan (1) Syncope: Code(s): R55 - Syncope and collapse Status: Acute Assessment and Plan: Patient presents to the ED on 02/27/2023 due to syncope. Patient was sitting down when he had syncopal episode. He did not hit his head or fall to the ground during this event. * Echocardiogram ordered * Monitor on telemetry overnight to rule out cardiac dysrhythmia though that seems unlikely. (2) Orthostatic hypotension: Code(s): I95.1 - Orthostatic hypotension Status: Acute Assessment and Plan: He has positive orthostatic vital signs and is dehydrated, likely due to over- diuresis as he was recently started on both furosemide and spironolactone for his cirrhosis and ascites. * Orthostatic vitals Q shift * patient rehydrated. (3) Dehydration: Code(s): E86.0 - Dehydration Status: Acute Assessment and Plan: * Patient recently started on furosemide and spironolactone for cirrhosis and ascites. * Patient's creatinine on presentation was 1.4. * IV fluids were given. (4) Pancytopenia: Code(s): D61.818 - Other pancytopenia Status: Acute Assessment and Plan: He has pancytopenia which is likely due to his underlying liver disease. This has been worked up at outside hospital. Patient has appointment with GI/ acid conditioning worker coming up (5) Neutropenia: Code(s): D70.9 - Neutropenia, unspecified Status: Acute Assessment and Plan: WBC count is lower than what he typically runs and he does have a mild neutropenia. He gives no history to suggest underlying infection and is afebrile. Continue to monitor closely for the development of fever with low threshold to start empiric antibiotics. * blood cultures No growth to date (6) Cirrhosis: Code(s): K74.60 - Unspecified cirrhosis of liver Status: Acute Assessment and Plan: * GI consulted. * stable for now. (7) Anemia: Code(s): D64.9 - Anemia, unspecified Status: Acute Assessment and Plan: Patient was recently treated for an acute GI bleed in [place]. He was found to have bleeding varices which were clipped. * On arrival to the ED patient's hemoglobin was 8.4. * This could be due to dilution from IV fluids. * Will put IV fluids on hold for now and continue to monitor blood pressure during this time and repeat an H&H. * Patient denies dark stools or bharat blood in his stools. Will monitor H&H Q 6 hours * Repeat hemoglobin was 7.4. * Anemia labs ordered and pt found to be b12 deficient. * Patient's hypotension, dizziness and kidney injury could all be due to acute anemia and hypoperfusion. Will treat with 1 unit of PRBCs. Recheck hemoglobin was 9.9. * Occult stool positive. GI already on case. (8) B12 deficiency: Code(s): E53.8 - Deficiency of other specified B group vitamins Status: Acute Assessment and Plan: B12 found to be <159 * B12 injection x1 given. Recommend weekly injections for 1 month. * Oral supplement aslo started. Subjective Date/time seen: 03/01/23 05:56 Interval history: Doing well today. Patient denies any lightheadedness, dizziness or visual changes. He remains orthostatic positive although asymptomatic. He did test occult positive. GI is currently seeing the patient. His H&H has remained stable. Await further recommendations from GI. He was found to have a severe
--- NOTE | 2023-03-01 05:56 | PM.IMPN ---
Progress Note: A&P Assessment and Plan (1) Syncope: Code(s): R55 - Syncope and collapse Status: Acute Assessment and Plan: Patient presents to the ED on 02/27/2023 due to syncope. Patient was sitting down when he had syncopal episode. He did not hit his head or fall to the ground during this event. Echocardiogram ordered Monitor on telemetry overnight to rule out cardiac dysrhythmia though that seems unlikely. (2) Orthostatic hypotension: Code(s): I95.1 - Orthostatic hypotension Status: Acute Assessment and Plan: He has positive orthostatic vital signs and is dehydrated, likely due to over-diuresis as he was recently started on both furosemide and spironolactone for his cirrhosis and ascites. Orthostatic vitals Q shift patient rehydrated. (3) Dehydration: Code(s): E86.0 - Dehydration Status: Acute Assessment and Plan: Patient recently started on furosemide and spironolactone for cirrhosis and ascites. Patient's creatinine on presentation was 1.4. IV fluids were given. (4) Pancytopenia: Code(s): D61.818 - Other pancytopenia Status: Acute Assessment and Plan: He has pancytopenia which is likely due to his underlying liver disease. This has been worked up at outside hospital. Patient has appointment with GI/ education sales consultant coming up (5) Neutropenia: Code(s): D70.9 - Neutropenia, unspecified Status: Acute Assessment and Plan: WBC count is lower than what he typically runs and he does have a mild neutropenia. He gives no history to suggest underlying infection and is afebrile. Continue to monitor closely for the development of fever with low threshold to start empiric antibiotics. blood cultures No growth to date (6) Cirrhosis: Code(s): K74.60 - Unspecified cirrhosis of liver Status: Acute Assessment and Plan: GI consulted. stable for now. (7) Anemia: Code(s): D64.9 - Anemia, unspecified Status: Acute Assessment and Plan: Patient was recently treated for an acute GI bleed in [place]. He was found to have bleeding varices which were clipped. On arrival to the ED patient's hemoglobin was 8.4. This could be due to dilution from IV fluids. Will put IV fluids on hold for now and continue to monitor blood pressure during this time and repeat an H&H. Patient denies dark stools or bharat blood in his stools. Will monitor H&H Q 6 hours Repeat hemoglobin was 7.4. Anemia labs ordered and pt found to be b12 deficient. Patient's hypotension, dizziness and kidney injury could all be due to acute anemia and hypoperfusion. Will treat with 1 unit of PRBCs. Recheck hemoglobin was 9.9. Occult stool positive. GI already on case. (8) B12 deficiency: Code(s): E53.8 - Deficiency of other specified B group vitamins Status: Acute Assessment and Plan: B12 found to be <159 B12 injection x1 given. Recommend weekly injections for 1 month. Oral supplement aslo started. Subjective Date/time seen: 03/01/23 05:56 Interval history: Doing well today. Patient denies any lightheadedness, dizziness or visual changes. He remains orthostatic positive although asymptomatic. He did test occult positive. GI is currently seeing the patient. His H&H has remained stable. Await further recommendations from GI. He was found to have a severely low B12 and supplementation has been started. Exam Narrative: GENERAL: Comfortable, no acute distress HENMT: moist mucous membranes EYES: EOM intact b/l NECK: no lymphadenopathy RESPIRATORY: clear to auscultation CARDIO: RRR GI: soft, nontender, bowel sounds present SKIN: no rashes EXTREMITIES: no edema, redness or tenderness Objective Data Vital Signs Vital Signs: Vital Signs - 24 hr 02/28/23 09:17 02/28/23 10:00 02/28/23 10:02 Temperature Pulse Rate
[2023-03-01 06:48] LABS: Eosinophils Absolute Auto 0.1 K/mm3 (0-0.3); Eosinophils Percent Auto 5.6 % (0-4.4); Hematocrit 29.5 % (42.0-52.0); Hemoglobin 9.5 g/dL (14.0-18.0); Immature Platelet Fraction Pct 5.4 % (0.9-11.2); Lymphocytes Absolute Auto 0.95 K/mm3 (0.9-3.2); Lymphocytes Percent Auto 48.5 % (18.3-44.2); Mean Corpuscular HGB Conc 32.2 g/dl (32-36); Mean Corpuscular Hemoglobin 30.2 pg (26-34); Mean Corpuscular Volume 93.7 fl (80-100); Monocytes Absolute Auto 0.2 K/mm3 (0.1-0.6); Monocytes Percent Auto 7.7 % (2.6-8.5); Neutrophils Absolute Auto 0.8 K/mm3 (1.3-6.7); Neutrophils Percent Auto 38.2 % (45.5-73.1); Platelet Count Result 46 k/mm3 (150-375); Red Blood Count 3.15 M/mm3 (4.6-6.20); Red Cell Distribution Width 17.2 % (11.5-14.5)
[2023-03-01 06:59] LABS: Alanine Aminotransferase 45 U/L (6-50); Albumin Level 2.8 g/dL (3.5-5.1); Alkaline Phosphatase 60 U/L (38-126); Anion Gap 6 mmol/L (8-16); Aspartate Amino Transferase 54 U/L (17-59); Bilirubin,Total 1.8 mg/dL (0.2-1.3); Blood Urea Nitrogen 24 mg/dL (9-20); Calcium 8.1 mg/dL (8.4-10.2); Carbon Dioxide 26 mmol/L (22-30); Chloride 110 mmol/L (98-107); Estimated CRCL calculation 55 ml/min; Estimated Glomerular Filt Rate > 60; Glucose 100 mg/dL (65-110); Potassium 4.4 mmol/L (3.4-5.0); Sodium 142 mmol/L (137-145)
[2023-03-01 07:40] LABS: Platelet Estimate Decreased (Adequate)
[2023-03-01 07:41] LABS: Anisocytosis 3+ (NORMAL); Ovalocytes 2+ (NORMAL); Schistocytes None Seen (NORMAL)
[2023-03-01] MEDS: CYANOCOBALAMIN 1,000 MCG TABLET 1000 MCG PO (09:17)
[2023-03-01] MEDS: PANTOPRAZOLE 40 MG TABLET PO (09:17)
[2023-03-01] MEDS: MIDODRINE HCL 10 MG TABLET PO ×3 (09:17→18:07)
[2023-03-01] MEDS: CYANOCOBALAMIN INJ 1,000 MCG/ML VIAL 1000 MCG IM (09:19)
--- NOTE | 2023-03-01 15:43 | WPDGIPROGNO ---
Progress Note: A&P Assessment and Plan (1) Chronic hepatitis C with cirrhosis: Code(s): B18.2 - Chronic viral hepatitis C; K74.60 - Unspecified cirrhosis of liver Status: Acute Assessment and Plan: newly diagnosed, he was admitted to [facility] and required also EGD with banding of EV few days ago and given coreg, also paracentesis for which was started on lasix and aldactone (I reviewed discharge papers) he will have repeat EGD in 3-4 weeks (already scheduled) and also follow-up with belly dancer as he will need start treatment for HCV (2) Orthostatic hypotension: Code(s): I95.1 - Orthostatic hypotension Status: Acute Assessment and Plan: will add midodrine no overt gib he has pancytopenia, probably from cirrhosis (3) Pancytopenia: Code(s): D61.818 - Other pancytopenia Status: Acute (4) Esophageal varices determined by endoscopy: Code(s): I85.00 - Esophageal varices without bleeding Status: Acute (5) Ascites: Code(s): R18.8 - Other ascites Status: Acute Assessment and Plan: had recent paracentesis at outside hospital (6) Occult blood in stools: Code(s): R19.5 - Other fecal abnormalities Status: Acute Assessment and Plan: no overt gib, had egd few days ago of course if obvious bleeding then we can repeat EGD Subjective Date/time seen: 03/01/23 15:43 Interval history: patient is feeling better, denies melena or abdominal pain, no nausea, no more syncope I talked to and she showed me documents from recent hospitalization, he had egd just few days ago with banding of esophageal varices and repeat EGD already scheduled for 03/30/23 Review of Systems Review of Systems: All systems reviewed & are unremarkable except as noted in HPI and below Exam Const: General: comfortable and no acute distress HENMT: Face/Nose/Sinus: Normal nares present Eyes: General: appearance normal, both eyes and all related structures Neck: Neck: supple Resp: Auscultation: clear to auscultation bilaterally Cardio: Rate: regular rate Rhythm: regular rhythm GI: Inspection: non-distended GI Palp: Yes Soft to palpation and No Tenderness to palpation present (GI) Auscultation: normal bowel sounds Skin: General skin exam: normal color Neuro: Speech: normal speech Motor exam (neuro): 5/5 motor strength present throughout Extrem: General: normal to inspection Psych: Mental Status: mental status grossly normal Objective Data Vital Signs Vital Signs: Vital Signs - 24 hr 02/28/23 15:51 02/28/23 16:06 02/28/23 17:06 Temperature 98.2 F 98.4 F 97.6 F Pulse Rate 70 66 67 Respiratory Rate 16 18 16 Blood Pressure 98/40 L 112/55 L 128/69 Pulse Oximetry 98 98 98 Oxygen Delivery 02/28/23 18:06 02/28/23 18:30 02/28/23 16:00 Temperature 98 F 98 F Pulse Rate 66 68 66 Respiratory Rate 18 18 Blood Pressure 136/68 136/66 Pulse Oximetry 98 97 Oxygen Delivery 02/28/23 20:00 02/28/23 20:09 02/28/23 20:28 Temperature 98.5 F 97.7 F 97.9 F Pulse Rate 72 79 78 Respiratory Rate 18 18 18 Blood Pressure 119/72 117/70 111/57 L Pulse Oximetry 98 98 98 Oxygen Delivery 02/28/23 21:02 02/28/23 22:00 02/28/23 20:00 Temperature 97.7 F Pulse Rate 69 69 74 Respiratory Rate 18 Blood Pressure 119/64 Pulse Oximetry 99 Oxygen Delivery 02/28/23 20:00 03/01/23 00:00 03/01/23 04:00 Temperature Pulse Rate 69 64 62 Respiratory Rate 18 Blood Pressure Pulse Oximetry 99 Oxygen Delivery Room Air 03/01/23 05:40 03/01/23 09:18 03/01/23 08:00 Temperature 98.4 F 98.1 F Pulse Rate 56 L 61 67 Respiratory Rate 18 12 Blood Pressure 110/62 119/72 Pulse Oximetry 96 99 Oxygen Delivery 03/01/23 09:30 03/01/23 09:30 03/01/23 08:00 Temperature Pulse Rate Respiratory Rate Blood Pressure 104/64 96/42 L Pulse Oximetry Oxygen Delivery Room Air 03/01/23 14:00 T
[2023-03-01] MEDS: MAG HYDROX/AL HYDROX/SIMETH 30 ML UDC 15 ML PO (18:07)
[2023-03-01] MEDS: MELATONIN 3 MG TABLET PO (21:31)
[2023-03-01] MEDS: carvediloL 12.5 MG TABLET PO (21:31)
--- NOTE | 2023-03-01 23:33 | ECHO_ITS ---
Patient Info Name: Adair Hardy Age: 67 years : 1955 Gender: Male Ht: 67 in Wt: 155 lbs BSA: 1.83 m2 HR: 56 bpm BP: 110 / 62 mmHg Heart Rhythm: Sinus Rhythm Technical Quality: Good Exam Date: 03/01/2023 9:32 AM Exam Location: Echo Lab Patient Status: Inpatient Admit Date: 03/01/2023 Staff Ordering Physician: Monica Corley PA-C Lead Security Officer: Reid Nunez RDCS Attending Provider: Cabrera Moeller MD Referring Physician: Jory RED; Exam Type: CA echo doppler color flow Study Info Indications - syncoe, s/p avr Complete two-dimensional, color flow and Doppler transthoracic echocardiogram is performed. Summary 1. Complete two-dimensional, color flow and Doppler transthoracic echocardiogram is performed. 2. Left ventricular chamber dimension is normal. 3. Left ventricular systolic function is normal, estimated at 65-70%. 4. There is mildly increased left ventricular wall thickness. 5. The left ventricular diastolic function is grade I diastolic dysfunction. 6. Right ventricular systolic function is normal. 7. Left atrial chamber dimension is mildly enlarged. 8. Right atrial chamber dimension is mildly enlarged. 9. S/p aortic valve replacement. Mean gradient of 11mmHg, peak velocity of 214cm/s. 10. There is no aortic valve regurgitation. 11. There is trace mitral valve regurgitation. 12. There is trace tricuspid valve regurgitation. 13. The aortic root size at the sinus of Valsalva is dilated. Left Ventricle Left ventricular chamber dimension is normal. Left ventricular systolic function is normal, estimated at 65-70%. There is mildly increased left ventricular wall thickness. The left ventricular diastolic function is grade I diastolic dysfunction. Right Ventricle Right ventricular chamber dimension is normal. Right ventricular systolic function is normal. Left Atria Left atrial chamber dimension is mildly enlarged. Right Atria Right atrial chamber dimension is mildly enlarged. Atrial Septum Intact interatrial septum visualized by color flow imaging. Aortic Valve S/p aortic valve replacement. Mean gradient of 11mmHg, peak velocity of 214cm/s. There is no aortic valve regurgitation. Pulmonic Valve The pulmonic valve is not well visualized. Mitral Valve There is trace mitral valve regurgitation. The mitral valve annulus is mildly calcified. Tricuspid Valve There is trace tricuspid valve regurgitation. Pericardium/Pleural There is no pericardial effusion. Inferior Vena Cava Normal inferior vena cava with >50% collapse upon inspiration consistent with normal right atrial pressure, 3 mmHg. Aorta The aortic root size at the sinus of Valsalva is dilated. Left Ventricular Outflow Tract Name Value Normal LVOT 2D LVOT Diameter 2.1 cm LVOT Doppler LVOT Peak Gradient 5 mmHg LVOT Mean Gradient 3 mmHg LVOT VTI 22 cm LVOT VTI/AV VTI Ratio 0.5 LVOT Stroke Volume 76 ml LVOT CO 5.1 l/min LVOT CI 2.8 l/min/m2 Pulmonic Valve
[2023-03-02] VITALS (14 sets, daily range): BP systolic 107–125; BP diastolic 50–71; PULSE 57–76; RESP 17–18; TEMP 36.5–37.2; O2SAT 96–99
[2023-03-02 05:58] LABS: Hematocrit 27.2 % (42.0-52.0); Hemoglobin 8.6 g/dL (14.0-18.0); Immature Platelet Fraction Pct 5.2 % (0.9-11.2); Mean Corpuscular HGB Conc 31.6 g/dl (32-36); Mean Corpuscular Hemoglobin 30.1 pg (26-34); Mean Corpuscular Volume 95.1 fl (80-100); Platelet Count Result 42 k/mm3 (150-375); Red Blood Count 2.86 M/mm3 (4.6-6.20); Red Cell Distribution Width 17.3 % (11.5-14.5)
[2023-03-02 06:09] LABS: Alanine Aminotransferase 41 U/L (6-50); Albumin Level 2.6 g/dL (3.5-5.1); Alkaline Phosphatase 56 U/L (38-126); Anion Gap 3 mmol/L (8-16); Aspartate Amino Transferase 50 U/L (17-59); Bilirubin,Total 1.7 mg/dL (0.2-1.3); Blood Urea Nitrogen 24 mg/dL (9-20); Calcium 8.2 mg/dL (8.4-10.2); Carbon Dioxide 27 mmol/L (22-30); Chloride 109 mmol/L (98-107); Estimated CRCL calculation 55 ml/min; Estimated Glomerular Filt Rate > 60; Glucose 109 mg/dL (65-110); Potassium 4.7 mmol/L (3.4-5.0); Sodium 139 mmol/L (137-145)
[2023-03-02 06:37] LABS: White Blood Count 1.8 K/mm3 (4.5-10.0)
--- NOTE | 2023-03-02 06:45 | WPDGIPROGNO ---
Progress Note: A&P Assessment and Plan (1) Cirrhosis: Code(s): K74.60 - Unspecified cirrhosis of liver Status: Acute Assessment and Plan: He was just recently diagnosed when he saw a physician [facility]. He has been told that his cirrhosis is due to hepatitis C. I see that his iron levels are elevated. I will therefore check him for possible hemochromatosis , particularly given the fact that he has very strong family history of cirrhosis. (2) Pancytopenia: Code(s): D61.818 - Other pancytopenia Status: Acute Assessment and Plan: He continues to have a low white blood count. He is on reverse isolation is. 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 At this point I do not think that we need to pursue further endoscopy at this institution unless he shows signs of bleeding. He has been started on carvedilol 12.5 mg b.i.d. for treatment of portal hypertension. (4) Occult blood in stools: Code(s): R19.5 - Other fecal abnormalities Status: Acute Assessment and Plan: He will have follow-up with his or nurse manager in [facility] and if indicated, endoscopy can be done (5) Hepatitis C: Code(s): B19.20 - Unspecified viral hepatitis C without hepatic coma Status: Acute Subjective Date/time seen: 03/02/23 06:45 no complaints today. He and his , who speaks better Portuguese, are concerned about his risk of infection and low white blood count. He states that he was told that he had cirrhosis just a few weeks ago in [facility] but given no other explanation other than that he has hepatitis C. Interestingly, her iron levels are elevated with 84% saturation. He also has a strong family history of cirrhosis including his father, brother and sister who have cirrhosis. He states that they did drink alcohol, but he doubts that they all have hepatitis C. Exam Const: General: cooperative and healthy appearing Orientation/consciousness: patient oriented x3 HENMT: Head: normal to inspection Ears: hearing grossly normal bilaterally Mouth: Yes Normal oral and palatal mucosa present Eyes: General: appearance normal, both eyes and all related structures Neck: Neck: normal visual inspection Chest: Chest palpation & inspection: normal inspection of the chest Resp: Effort & Inspection: normal respiratory effort Auscultation: clear to auscultation bilaterally Cardio: Rate: regular rate Rhythm: regular rhythm GI: Inspection: normal to inspection GI Palp: No abdominal tenderness, Yes Soft to palpation, Yes No hepatosplenomegaly present and No Ascites present Auscultation: normal bowel sounds Skin: General skin exam: normal color and no jaundice Neuro: General: patient oriented x3 Speech: normal speech Objective Data Vital Signs Vital Signs: Vital Signs - 24 hr 03/01/23 09:18 03/01/23 08:00 03/01/23 09:30 Temperature 36.7 C Pulse Rate 61 67 Respiratory Rate 12 Blood Pressure 119/72 104/64 Pulse Oximetry 99 Oxygen Delivery 03/01/23 09:30 03/01/23 08:00 03/01/23 14:00 Temperature 36.4 C Pulse Rate 62 Respiratory Rate 12 Blood Pressure 96/42 L 115/60 Pulse Oximetry 99 Oxygen Delivery Room Air 03/01/23 08:00 03/01/23 12:00 03/01/23 16:00 Temperature Pulse Rate 66 69 65 Respiratory Rate Blood Pressure Pulse Oximetry Oxygen Delivery 03/01/23 21:06 03/01/23 21:09 03/01/23 21:12 Temperature 36.7 C 36.7 C 36.7 C Pulse Rate 60 67 70 Respiratory Rate 18 18 18 Blood Pressure 125/57 L 126/68 114/58 L Pulse Oximetry 98 98 98 Oxygen Delivery 03/01/23 21:18 03/01/23 21:31 03/01/23 20:00 Temperature 36.7 C Pulse Rate 60 63 70 Respiratory Rate 18 Blood Pr
[2023-03-02] MEDS: carvediloL 12.5 MG TABLET PO ×2 (09:01→20:19)
[2023-03-02] MEDS: MIDODRINE HCL 10 MG TABLET PO ×3 (09:01→17:48)
[2023-03-02] MEDS: CYANOCOBALAMIN 1,000 MCG TABLET 1000 MCG PO (09:02)
[2023-03-02] MEDS: PANTOPRAZOLE 40 MG TABLET PO (09:02)
--- NOTE | 2023-03-02 12:18 | P.PNIM_ITS ---
Progress Note: A&P Assessment and Plan (1) Syncope: Code(s): R55 - Syncope and collapse Status: Acute Assessment and Plan: Patient presents to the ED on 02/27/2023 due to syncope. Patient was sitting down when he had syncopal episode. He did not hit his head or fall to the ground during this event. * Echocardiogram ordered and unremarkable * Monitor on telemetry overnight to rule out cardiac dysrhythmia though that seems unlikely. No events noted over night * No further syncope or near syncope (2) Orthostatic hypotension: Code(s): I95.1 - Orthostatic hypotension Status: Acute Assessment and Plan: He has positive orthostatic vital signs and is dehydrated, likely due to over- diuresis as he was recently started on both furosemide and spironolactone for his cirrhosis and ascites. * Orthostatic vitals Q shift * patient rehydrated. * orthostatic vs this morning are negative (3) Dehydration: Code(s): E86.0 - Dehydration Status: Acute Assessment and Plan: * Patient recently started on furosemide and spironolactone for cirrhosis and ascites. * Patient's creatinine on presentation was 1.4 and down to 1.1 today * IV fluids were given and continues with NS at 75 ml/hr (4) Pancytopenia: Code(s): D61.818 - Other pancytopenia Status: Acute Assessment and Plan: He has pancytopenia which is likely due to his underlying liver disease. This has been worked up at outside hospital. Patient has appointment with GI/ men's basketball coach coming up (5) Neutropenia: Code(s): D70.9 - Neutropenia, unspecified Status: Acute Assessment and Plan: WBC count is lower than what he typically runs and he does have a mild neutropenia. He gives no history to suggest underlying infection and is afebrile. Continue to monitor closely for the development of fever with low threshold to start empiric antibiotics. * blood cultures No growth to date (6) Cirrhosis: Code(s): K74.60 - Unspecified cirrhosis of liver Status: Acute Assessment and Plan: * GI consulted. * stable for now. (7) Anemia: Code(s): D64.9 - Anemia, unspecified Status: Acute Assessment and Plan: Patient was recently treated for an acute GI bleed in [place]. He was found to have bleeding varices which were clipped. * On arrival to the ED patient's hemoglobin was 8.4. * This could be due to dilution from IV fluids. * Will put IV fluids on hold for now and continue to monitor blood pressure during this time and repeat an H&H. * Patient denies dark stools or bharat blood in his stools. Will monitor H&H Q 6 hours * Repeat hemoglobin was 7.4. * Anemia labs ordered and pt found to be b12 deficient. * Patient's hypotension, dizziness and kidney injury could all be due to acute anemia and hypoperfusion. Will treat with 1 unit of PRBCs. Recheck hemoglobin was 9.9 but this morning down to 8.6. Will continue to monitor * Occult stool positive. GI already on case. (8) B12 deficiency: Code(s): E53.8 - Deficiency of other specified B group vitamins Status: Acute Assessment and Plan: B12 found to be <159 * B12 injection x1 given. Recommend weekly injections for 1 month. * Oral supplement aslo started. Subjective Date/time seen: 03/02/23 0845 Interval history: 03/01: Doing well today.? Patient denies any lightheadedness, dizz
--- NOTE | 2023-03-02 12:18 | PM.IMPN ---
Progress Note: A&P Assessment and Plan (1) Syncope: Code(s): R55 - Syncope and collapse Status: Acute Assessment and Plan: Patient presents to the ED on 02/27/2023 due to syncope. Patient was sitting down when he had syncopal episode. He did not hit his head or fall to the ground during this event. Echocardiogram ordered and unremarkable Monitor on telemetry overnight to rule out cardiac dysrhythmia though that seems unlikely. No events noted over night No further syncope or near syncope (2) Orthostatic hypotension: Code(s): I95.1 - Orthostatic hypotension Status: Acute Assessment and Plan: He has positive orthostatic vital signs and is dehydrated, likely due to over-diuresis as he was recently started on both furosemide and spironolactone for his cirrhosis and ascites. Orthostatic vitals Q shift patient rehydrated. orthostatic vs this morning are negative (3) Dehydration: Code(s): E86.0 - Dehydration Status: Acute Assessment and Plan: Patient recently started on furosemide and spironolactone for cirrhosis and ascites. Patient's creatinine on presentation was 1.4 and down to 1.1 today IV fluids were given and continues with NS at 75 ml/hr (4) Pancytopenia: Code(s): D61.818 - Other pancytopenia Status: Acute Assessment and Plan: He has pancytopenia which is likely due to his underlying liver disease. This has been worked up at outside hospital. Patient has appointment with GI/ refractory products supervisor coming up (5) Neutropenia: Code(s): D70.9 - Neutropenia, unspecified Status: Acute Assessment and Plan: WBC count is lower than what he typically runs and he does have a mild neutropenia. He gives no history to suggest underlying infection and is afebrile. Continue to monitor closely for the development of fever with low threshold to start empiric antibiotics. blood cultures No growth to date (6) Cirrhosis: Code(s): K74.60 - Unspecified cirrhosis of liver Status: Acute Assessment and Plan: GI consulted. stable for now. (7) Anemia: Code(s): D64.9 - Anemia, unspecified Status: Acute Assessment and Plan: Patient was recently treated for an acute GI bleed in [place]. He was found to have bleeding varices which were clipped. On arrival to the ED patient's hemoglobin was 8.4. This could be due to dilution from IV fluids. Will put IV fluids on hold for now and continue to monitor blood pressure during this time and repeat an H&H. Patient denies dark stools or bharat blood in his stools. Will monitor H&H Q 6 hours Repeat hemoglobin was 7.4. Anemia labs ordered and pt found to be b12 deficient. Patient's hypotension, dizziness and kidney injury could all be due to acute anemia and hypoperfusion. Will treat with 1 unit of PRBCs. Recheck hemoglobin was 9.9 but this morning down to 8.6. Will continue to monitor Occult stool positive. GI already on case. (8) B12 deficiency: Code(s): E53.8 - Deficiency of other specified B group vitamins Status: Acute Assessment and Plan: B12 found to be <159 B12 injection x1 given. Recommend weekly injections for 1 month. Oral supplement aslo started. Subjective Date/time seen: 03/02/23 0845 Interval history: 03/01: Doing well today.? Patient denies any lightheadedness, dizziness or visual changes.? He remains orthostatic positive although asymptomatic.? He did test occult positive.? GI is currently seeing the patient.? His H&H has remained stable.? Await further recommendations from GI.? He was found to have a severely low B12 and supplementation has been started. 03/02: This morning on rounding at bedside. Discussed WBCs remain low at 1.8. Hgb down to 8.6 and kidney function slightly improved with BUN 24 and creat. 1.1. States he is feeling a little better
[2023-03-02] MEDS: MAG HYDROX/AL HYDROX/SIMETH 30 ML UDC 15 ML PO (20:18)
[2023-03-02] MEDS: MELATONIN 3 MG TABLET PO (20:19)
[2023-03-03] VITALS (12 sets, daily range): BP systolic 109–125; BP diastolic 53–71; PULSE 58–73; RESP 16–20; TEMP 36.2–36.5; O2SAT 96–100
[2023-03-03 05:44] LABS: Basophils Percent Auto 0.6 % (0.2-1.2); Eosinophils Absolute Auto 0.1 K/mm3 (0-0.3); Hematocrit 26.9 % (42.0-52.0); Hemoglobin 8.6 g/dL (14.0-18.0); Lymphocytes Absolute Auto 0.87 K/mm3 (0.9-3.2); Lymphocytes Percent Auto 49.2 % (18.3-44.2); Mean Corpuscular Volume 93.7 fl (80-100); Mean Platelet Volume 11.6 fl (7.4-10.4); Monocytes Absolute Auto 0.2 K/mm3 (0.1-0.6); Monocytes Percent Auto 11.9 % (2.6-8.5); Neutrophils Absolute Auto 0.6 K/mm3 (1.3-6.7); Neutrophils Percent Auto 34.3 % (45.5-73.1); Platelet Count Result 45 k/mm3 (150-375); Red Blood Count 2.87 M/mm3 (4.6-6.20)
[2023-03-03 06:02] LABS: Alanine Aminotransferase 41 U/L (6-50); Albumin Level 2.6 g/dL (3.5-5.1); Alkaline Phosphatase 61 U/L (38-126); Anion Gap 1 mmol/L (8-16); Aspartate Amino Transferase 49 U/L (17-59); Bilirubin,Total 1.8 mg/dL (0.2-1.3); Blood Urea Nitrogen 20 mg/dL (9-20); Calcium 8.1 mg/dL (8.4-10.2); Carbon Dioxide 30 mmol/L (22-30); Chloride 108 mmol/L (98-107); Estimated CRCL calculation 55 ml/min; Estimated Glomerular Filt Rate > 60; Glucose 101 mg/dL (65-110); Potassium 4.6 mmol/L (3.4-5.0); Sodium 139 mmol/L (137-145)
[2023-03-03 06:58] LABS: White Blood Count 1.8 K/mm3 (4.5-10.0)
[2023-03-03 06:59] LABS: Anisocytosis 1+ (NORMAL); Ovalocytes 1+ (NORMAL); Platelet Estimate Decreased (Adequate); Schistocytes None Seen (NORMAL)
--- NOTE | 2023-03-03 07:33 | P.PNIM_ITS ---
Progress Note: A&P Assessment and Plan (1) Syncope: Code(s): R55 - Syncope and collapse Status: Acute Assessment and Plan: Patient presents to the ED on 02/27/2023 due to syncope. Patient was sitting down when he had syncopal episode. He did not hit his head or fall to the ground during this event. * Echocardiogram ordered and unremarkable * Monitor on telemetry overnight to rule out cardiac dysrhythmia though that seems unlikely. No events noted over night * No further syncope or near syncope * Will order PT eval and treat to make sure patient is safe to ambulate and transfer prior to discharge (2) Orthostatic hypotension: Code(s): I95.1 - Orthostatic hypotension Status: Acute Assessment and Plan: He has positive orthostatic vital signs and is dehydrated, likely due to over- diuresis as he was recently started on both furosemide and spironolactone for his cirrhosis and ascites. * Orthostatic vitals Q shift * patient rehydrated. * orthostatic vs this morning are negative (3) Dehydration: Code(s): E86.0 - Dehydration Status: Acute Assessment and Plan: * Patient recently started on furosemide and spironolactone for cirrhosis and ascites. * Patient's creatinine on presentation was 1.4 and down to 1.1 today * IV fluids were given * Patient has been tolerating oral food and fluid and feels like he is more hydrated today (4) Pancytopenia: Code(s): D61.818 - Other pancytopenia Status: Acute Assessment and Plan: He has pancytopenia which is likely due to his underlying liver disease. This has been worked up at outside hospital. Patient has appointment with GI/ product design engineer coming up (5) Neutropenia: Code(s): D70.9 - Neutropenia, unspecified Status: Acute Assessment and Plan: WBC count is lower than what he typically runs and he does have a mild neutropenia. He gives no history to suggest underlying infection and is afebrile. Continue to monitor closely for the development of fever with low threshold to start empiric antibiotics. * blood cultures No growth to date * Patient continues to be afebrile with no signs of infection (6) Cirrhosis: Code(s): K74.60 - Unspecified cirrhosis of liver Status: Acute Assessment and Plan: * GI consulted. * stable for now. (7) Anemia: Code(s): D64.9 - Anemia, unspecified Status: Acute Assessment and Plan: Patient was recently treated for an acute GI bleed in [place]. He was found to have bleeding varices which were clipped. * On arrival to the ED patient's hemoglobin was 8.4. * This could be due to dilution from IV fluids. * Will put IV fluids on hold for now and continue to monitor blood pressure during this time and repeat an H&H. * Patient denies dark stools or bharat blood in his stools. Will monitor H&H Q 6 hours * Repeat hemoglobin was 7.4. * Anemia labs ordered and pt found to be b12 deficient. * Patient's hypotension, dizziness and kidney injury could all be due to acute anemia and hypoperfusion. Will treat with 1 unit of PRBCs. Recheck hemoglobin was 9.9 but this morning down to 8.6. Will continue to monitor * Occult stool positive. GI already on case. (8) B12 deficiency: Code(s): E53.8 - Deficiency of other specified B group vitamins Status: Acute Assessment and Plan: B12 found to be <159 * B12 injection x1 given. Recommend weekly injections for
--- NOTE | 2023-03-03 07:33 | PM.IMPN ---
Progress Note: A&P Assessment and Plan (1) Syncope: Code(s): R55 - Syncope and collapse Status: Acute Assessment and Plan: Patient presents to the ED on 02/27/2023 due to syncope. Patient was sitting down when he had syncopal episode. He did not hit his head or fall to the ground during this event. Echocardiogram ordered and unremarkable Monitor on telemetry overnight to rule out cardiac dysrhythmia though that seems unlikely. No events noted over night No further syncope or near syncope Will order PT eval and treat to make sure patient is safe to ambulate and transfer prior to discharge (2) Orthostatic hypotension: Code(s): I95.1 - Orthostatic hypotension Status: Acute Assessment and Plan: He has positive orthostatic vital signs and is dehydrated, likely due to over-diuresis as he was recently started on both furosemide and spironolactone for his cirrhosis and ascites. Orthostatic vitals Q shift patient rehydrated. orthostatic vs this morning are negative (3) Dehydration: Code(s): E86.0 - Dehydration Status: Acute Assessment and Plan: Patient recently started on furosemide and spironolactone for cirrhosis and ascites. Patient's creatinine on presentation was 1.4 and down to 1.1 today IV fluids were given Patient has been tolerating oral food and fluid and feels like he is more hydrated today (4) Pancytopenia: Code(s): D61.818 - Other pancytopenia Status: Acute Assessment and Plan: He has pancytopenia which is likely due to his underlying liver disease. This has been worked up at outside hospital. Patient has appointment with GI/ vmware architect coming up (5) Neutropenia: Code(s): D70.9 - Neutropenia, unspecified Status: Acute Assessment and Plan: WBC count is lower than what he typically runs and he does have a mild neutropenia. He gives no history to suggest underlying infection and is afebrile. Continue to monitor closely for the development of fever with low threshold to start empiric antibiotics. blood cultures No growth to date Patient continues to be afebrile with no signs of infection (6) Cirrhosis: Code(s): K74.60 - Unspecified cirrhosis of liver Status: Acute Assessment and Plan: GI consulted. stable for now. (7) Anemia: Code(s): D64.9 - Anemia, unspecified Status: Acute Assessment and Plan: Patient was recently treated for an acute GI bleed in [place]. He was found to have bleeding varices which were clipped. On arrival to the ED patient's hemoglobin was 8.4. This could be due to dilution from IV fluids. Will put IV fluids on hold for now and continue to monitor blood pressure during this time and repeat an H&H. Patient denies dark stools or bharat blood in his stools. Will monitor H&H Q 6 hours Repeat hemoglobin was 7.4. Anemia labs ordered and pt found to be b12 deficient. Patient's hypotension, dizziness and kidney injury could all be due to acute anemia and hypoperfusion. Will treat with 1 unit of PRBCs. Recheck hemoglobin was 9.9 but this morning down to 8.6. Will continue to monitor Occult stool positive. GI already on case. (8) B12 deficiency: Code(s): E53.8 - Deficiency of other specified B group vitamins Status: Acute Assessment and Plan: B12 found to be <159 B12 injection x1 given. Recommend weekly injections for 1 month. Oral supplement aslo started. Subjective Date/time seen: 03/03/23 07:33 Interval history: 03/01:? Doing well today.? Patient denies any lightheadedness, dizziness or visual changes.? He remains orthostatic positive although asymptomatic.? He did test occult positive.? GI is currently seeing the patient.? His H&H has remained stable.? Await further recommendations from GI.? He was found to have a severely low B12 and supplementation has be
[2023-03-03] MEDS: MIDODRINE HCL 10 MG TABLET PO ×3 (09:16→17:14)
[2023-03-03] MEDS: carvediloL 12.5 MG TABLET PO ×2 (09:16→20:48)
[2023-03-03] MEDS: CYANOCOBALAMIN 1,000 MCG TABLET 1000 MCG PO (09:16)
[2023-03-03] MEDS: PANTOPRAZOLE 40 MG TABLET PO (09:16)
[2023-03-03] MEDS: MELATONIN 3 MG TABLET PO (20:50)
[2023-03-03] MEDS: MAG HYDROX/AL HYDROX/SIMETH 30 ML UDC 15 ML PO (21:37)
[2023-03-04] VITALS (17 sets, daily range): BP systolic 80–126; BP diastolic 44–73; PULSE 59–77; RESP 18–20; TEMP 36.2–36.8; O2SAT 97–100
[2023-03-04 05:51] LABS: Basophils Percent Auto 0.5 % (0.2-1.2); Eosinophils Absolute Auto 0.1 K/mm3 (0-0.3); Eosinophils Percent Auto 5.7 % (0-4.4); Hematocrit 26.4 % (42.0-52.0); Hemoglobin 8.4 g/dL (14.0-18.0); Immature Platelet Fraction Pct 7.3 % (0.9-11.2); Lymphocytes Absolute Auto 0.99 K/mm3 (0.9-3.2); Lymphocytes Percent Auto 47.1 % (18.3-44.2); Mean Corpuscular HGB Conc 31.8 g/dl (32-36); Mean Corpuscular Hemoglobin 30.4 pg (26-34); Mean Corpuscular Volume 95.7 fl (80-100); Mean Platelet Volume 11.1 fl (7.4-10.4); Monocytes Absolute Auto 0.3 K/mm3 (0.1-0.6); Monocytes Percent Auto 12.9 % (2.6-8.5); Neutrophils Absolute Auto 0.7 K/mm3 (1.3-6.7); Neutrophils Percent Auto 33.8 % (45.5-73.1); Platelet Count Result 43 k/mm3 (150-375); Red Blood Count 2.76 M/mm3 (4.6-6.20); Red Cell Distribution Width 17.8 % (11.5-14.5); White Blood Count 2.1 K/mm3 (4.5-10.0)
[2023-03-04 06:04] LABS: Alanine Aminotransferase 40 U/L (6-50); Albumin Level 2.5 g/dL (3.5-5.1); Alkaline Phosphatase 60 U/L (38-126); Anion Gap 4 mmol/L (8-16); Aspartate Amino Transferase 46 U/L (17-59); Bilirubin,Total 1.3 mg/dL (0.2-1.3); Blood Urea Nitrogen 20 mg/dL (9-20); Carbon Dioxide 27 mmol/L (22-30); Chloride 110 mmol/L (98-107); Estimated CRCL calculation 55 ml/min; Estimated Glomerular Filt Rate > 60; Glucose 96 mg/dL (65-110); Sodium 141 mmol/L (137-145)
[2023-03-04 08:00] LABS: Anisocytosis 2+ (NORMAL); Ovalocytes 1+ (NORMAL); Platelet Estimate Decreased (Adequate); Poikilocytosis 1+ (NORMAL)
[2023-03-04 08:01] LABS: Hypochromasia 1+ (NORMAL); Schistocytes None Seen (NORMAL)
[2023-03-04] MEDS: MIDODRINE HCL 10 MG TABLET PO ×3 (09:47→17:04)
[2023-03-04] MEDS: PANTOPRAZOLE 40 MG TABLET PO (09:47)
[2023-03-04] MEDS: CYANOCOBALAMIN 1,000 MCG TABLET 1000 MCG PO (09:47)
[2023-03-04 11:28] LABS: HIV 1/2 Ab P24 Ag Result Negative (Negative)
--- NOTE | 2023-03-04 12:01 | PDONCCN ---
HPI - Date of Consult Date/Time: 03/04/23 12:01 Requesting Physician: Annamaria Barnard PA-C Primary Care Provider: Niurka Escobedo, MD - Consult Narrative Narrative: Adair Hardy is a 67 year old male presented to hospital with syncope and found to have anemia. He was not seeing any doctor before this acute episode and he doesn't know about his baseline labs. Hematology consultation is for pancytopenia he was recently diagnosis with cirrhosis is due to hepatitis C. his iron levels are elevated and work up for hemochromatosis. he has very strong family history of cirrhosis. He was Esophageal varices confirmed by endoscopy. occult stool blood is positive. He is concern about infection risk due to low WBC. he reports that he has ascites and s/p drainage for the ascites. Review of Systems - Neurologic Reports hearing normal, Reports syncope, Denies abnormal speech, Denies confusion, Denies headache(s), Denies focal weakness, Denies numbness PMFSH Medical History: Medical History (This Medical Record has been edited. Action required.) Ascites Chronic hepatitis C with cirrhosis Cirrhosis Esophageal varices Esophageal varices determined by endoscopy Hepatitis C Hyperlipidemia Hyperlipidemia Hypertension Hypertension Occult blood in stools Pancytopenia Stroke Surgical History: Surgical History (This Medical Record has been edited. Action required.) Aortic valve replaced History of aortic valve replacement with bioprosthetic valve History of esophagogastroduodenoscopy (EGD) Status post aortic dissection repair Family History: Family History (This Medical Record has been edited. Action required.) Mother Ovarian cancer Father Cirrhosis Other Hypertension Liver disease Unknown family medical history - Social History Social History: Social History (This Medical Record has been edited. Action required.) Gender Identity: Gender identity (if verbalized by the patient): Male Alcohol Use: Alcohol intake: never Alcohol use details: No alcohol 12 years. Substance Use: Substance use: never Substance use type: does not use Others: Spiritual care concerns: No Living Arrangements: Living arrangements: with family Smoking Status: Smoking status: Never smoker Social Determinants of Health: Do You Feel Safe in your Home?: Yes Has the Lack of Transportation Kept You From Medical Appointments or From Getting Medications?: No Within the Past 12 Months, Were You Worried Whether Your Food Would Run Out Before You Got Money to Buy More?: Never True What is Your Housing Situation Today?: I Have Housing Are You Worried That in the Next 2 Months, You May Not Have Your Own Housing to Live In?: No Do You Have Trouble Paying Your Heating Or Electricity Bill?: No Do You Have Trouble Paying For Medicines?: No Are You Currently Unemployed and Looking for Work?: No Highest Level of Education Completed: Decline to Answer Do You Have Trouble With Childcare or the Care of a Family Member?: No Exam - Vital Signs Vital Signs - 24 hr 03/03/23 13:46 03/03/23 13:48 03/03/23 13:50 Temperature 36.2 C L Pulse Rate 66 68 73 Respiratory Rate 17 Blood Pressure 123/70 125/69 109/53 L Pulse Oximetry 98 100 99 Oxygen Delivery 03/03/23 16:02 03/03/23 16:00 03/03/23 20:00 Temperature 36.2 C L Pulse Rate 63 63 Respiratory Rate 17 Blood Pressure 109/53 L Pulse Oximetry 99 Oxygen Delivery Room Air 03/03/23 20:00 03/03/23 21:51 03/03/23 20:00 Temperature 36.5 C Pulse Rate 64 64 65 Respiratory Rate 16 20 Blood Pressure 119/71 Pulse Oximetry 98 97 Oxygen Delivery Room Air 03/04/23 00:00 03/04/23 04:00 03/04/23 06:00 Temperature 36.5 C Pulse Rate 59 L 74 71 Respiratory Rate 20 Blood Pressure 105/60 Pulse Oximetry 98 Oxygen
--- NOTE | 2023-03-04 12:36 | PM.IMPN ---
Progress Note: A&P Assessment and Plan (1) Syncope: Code(s): R55 - Syncope and collapse Status: Acute Assessment and Plan: Patient presents to the ED on 02/27/2023 due to syncope. Patient was sitting down when he had syncopal episode. He did not hit his head or fall to the ground during this event. -echo unremakrable -Pt is significantly orthostatic. Will order fernando hose. Continue minodrine. -hold coreg. Pt sees cardiolgy at [facility] and has no hx of afib or CHF that he knows of. Thinks he is on this for bp. may need to stop this at d/c -Continue midodrine -PT/OT (2) Orthostatic hypotension: Code(s): I95.1 - Orthostatic hypotension Status: Acute Assessment and Plan: He has positive orthostatic vital signs and is dehydrated, likely due to over-diuresis as he was recently started on both furosemide and spironolactone for his cirrhosis and ascites. He continues to be orthostatic even after holding these medications. 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 Patient's creatinine on presentation was 1.4 and down to 1.1 today IV fluids were given (4) Pancytopenia: Code(s): D61.818 - Other pancytopenia Status: Acute Assessment and Plan: He has pancytopenia which is likely due to his underlying liver disease. -This has been worked up at outside hospital--awaiting records. Requesting records [facility] as the initial records were requested at the wrong hospital -Patient has appointment with GI/ yarn dyer coming up -hematology consulted -reverse isolation (5) Neutropenia: Code(s): D70.9 - Neutropenia, unspecified Status: Acute Assessment and Plan: WBC count is lower than what he typically runs and he does have a mild neutropenia -He gives no history to suggest underlying infection and is afebrile. -HIV negative -Continue to monitor closely for the development of fever with low threshold to start empiric antibiotics. -no signs of infection on exam or work up thus far (6) Cirrhosis: Code(s): K74.60 - Unspecified cirrhosis of liver Status: Acute Assessment and Plan: awaiting records- refaxed 03/04 -GI onboard -working up hemochromatosis -hep c diagnosed, will need tx (7) Anemia: Code(s): D64.9 - Anemia, unspecified Status: Acute Assessment and Plan: Patient was recently treated for an acute GI bleed in [place]. He was found to have bleeding varices which were clipped. Pt also has GAVE syndrome -Stable -pt denies dark stool -B12 severely low. IM injection given x 1 while hosptialized. Will need weekly b12 injections at d/c as well as oral while hospitalized (8) B12 deficiency: Code(s): E53.8 - Deficiency of other specified B group vitamins Status: Acute Assessment and Plan: B12 found to be <159 B12 injection x1 given. Recommend weekly injections for 1 month. Oral supplement also started. 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 records. Pt orthostatic today and symptomatic. FERNANDO capone added. Recommend obtaining U records also to see if BB can be stopped Time Spent With Patient Time with patient: 25 - 35 minutes Subjective Date/time seen: 03/04/23 12:36 Interval history: Pt is a 67-year-old male here for syncope and orthostatic hypotension. Patient was seen today and states he did feel lightheaded with a slight headache when he did his orthostatic blood pressures this morning. He feels fine with sitting. He denies any diarrhea. He has h
[2023-03-04 17:12] LABS: Immature Reticulocyte Fraction 43.8 % (3.0-15.9); Reticulocyte Hemoglobin Conten 39.8 pg (28.2-35.7); Reticulocyte Percent 1.84 % (0.7-4.3); Reticulocytes Absolute 0.05 M/mm3 (0.02-0.1)
[2023-03-04 17:19] LABS: Lactate Dehydrogenase 873 U/L (120-246)
[2023-03-04 17:37] LABS: Iron 34 ug/dL (49-181)
[2023-03-04 17:46] LABS: Percent Iron Saturation 16 % (20-50)
[2023-03-04] MEDS: MELATONIN 3 MG TABLET PO (20:48)
[2023-03-04] MEDS: MAG HYDROX/AL HYDROX/SIMETH 30 ML UDC 15 ML PO (23:05)
[2023-03-05] VITALS (17 sets, daily range): BP systolic 96–144; BP diastolic 49–72; PULSE 58–83; RESP 18; TEMP 36.6–36.9; O2SAT 98–100
[2023-03-05 05:56] LABS: Eosinophils Absolute Auto 0.1 K/mm3 (0-0.3); Eosinophils Percent Auto 3.9 % (0-4.4); Hematocrit 28.2 % (42.0-52.0); Immature Granulocyte Absolute 0.01 K/mm3 (0.00-0.031); Immature Granulocyte Percent A 0.4 % (0-0.5); Immature Platelet Fraction Pct 7.3 % (0.9-11.2); Lymphocytes Absolute Auto 1.06 K/mm3 (0.9-3.2); Lymphocytes Percent Auto 41.7 % (18.3-44.2); Mean Corpuscular HGB Conc 31.9 g/dl (32-36); Mean Corpuscular Hemoglobin 30.4 pg (26-34); Mean Corpuscular Volume 95.3 fl (80-100); Monocytes Absolute Auto 0.4 K/mm3 (0.1-0.6); Monocytes Percent Auto 14.2 % (2.6-8.5); Neutrophils Percent Auto 39.8 % (45.5-73.1); Platelet Count Result 46 k/mm3 (150-375); Red Blood Count 2.96 M/mm3 (4.6-6.20); Red Cell Distribution Width 18.5 % (11.5-14.5); White Blood Count 2.5 K/mm3 (4.5-10.0)
[2023-03-05 06:02] LABS: Alanine Aminotransferase 42 U/L (6-50); Albumin Level 2.6 g/dL (3.5-5.1); Alkaline Phosphatase 66 U/L (38-126); Anion Gap 4 mmol/L (8-16); Aspartate Amino Transferase 49 U/L (17-59); Bilirubin,Total 1.3 mg/dL (0.2-1.3); Blood Urea Nitrogen 19 mg/dL (9-20); Calcium 8.1 mg/dL (8.4-10.2); Carbon Dioxide 27 mmol/L (22-30); Chloride 109 mmol/L (98-107); Estimated CRCL calculation 55 ml/min; Estimated Glomerular Filt Rate > 60; Glucose 88 mg/dL (65-110); Sodium 140 mmol/L (137-145)
--- NOTE | 2023-03-05 07:27 | PM.IMPN ---
Subjective Date/time seen: 03/05/23 07:27 Objective Data Vital Signs Vital Signs: Vital Signs - 24 hr 03/04/23 07:57 03/04/23 07:59 03/04/23 08:02 Temperature Pulse Rate 69 72 73 Respiratory Rate Blood Pressure 116/64 100/62 80/44 L Pulse Oximetry 97 99 100 Oxygen Delivery 03/04/23 08:00 03/04/23 09:45 03/04/23 12:00 Temperature Pulse Rate 75 73 Respiratory Rate Blood Pressure Pulse Oximetry Oxygen Delivery Room Air 03/04/23 13:38 03/04/23 13:38 03/04/23 13:40 Temperature 97.1 F L Pulse Rate 69 69 Respiratory Rate 18 Blood Pressure 126/73 122/72 Pulse Oximetry 99 99 Oxygen Delivery 03/04/23 13:42 03/04/23 16:00 03/04/23 19:42 Temperature 98.2 F Pulse Rate 70 60 61 Respiratory Rate 18 Blood Pressure 105/56 L 126/62 Pulse Oximetry 100 98 Oxygen Delivery 03/04/23 19:45 03/04/23 19:47 03/04/23 20:00 Temperature 98.2 F 98.2 F Pulse Rate 72 77 69 Respiratory Rate 18 18 Blood Pressure 112/62 112/59 L Pulse Oximetry 99 98 Oxygen Delivery 03/04/23 20:00 03/04/23 22:00 03/05/23 00:00 Temperature 97.8 F Pulse Rate 77 68 60 Respiratory Rate 18 18 Blood Pressure 122/65 Pulse Oximetry 98 99 Oxygen Delivery Room Air 03/05/23 04:00 03/05/23 06:00 03/05/23 07:19 Temperature 98.4 F Pulse Rate 58 L 83 67 Respiratory Rate 18 18 Blood Pressure 105/55 L 107/62 Pulse Oximetry 100 99 Oxygen Delivery 03/05/23 07:22 03/05/23 07:24 Temperature Pulse Rate 66 70 Respiratory Rate 18 18 Blood Pressure 96/60 L 100/49 L Pulse Oximetry 99 99 Oxygen Delivery Intake/Output Intake/Output: Intake & Output 03/02/23 03/03/23 03/04/23 03/05/23 23:59 23:59 23:59 23:59 Intake Total 958 849 2442 Output Total 200 400 315 Balance 386 300 8342 Meds/Results Medications: Active Medications Generic Name Dose Route Start Last Admin Trade Name Freq PRN Reason Stop Dose Admin Acetaminophen 650 mg 02/27/23 17:59 02/28/23 09:25 Acetaminophen 325 Mg Tablet PO 650 mg Q4H PRN Administration Mild Pain (1-3) or Fever Al Hydrox/Mg Hydrox/Simethicone 15 ml 02/27/23 23:34 03/04/23 23:05 Mag Hydrox/Al Hydrox/Simeth 30 Ml Udc PO 15 ml PRN PRN Administration Acid Reflux Carvedilol 12.5 mg 02/28/23 09:00 03/04/23 09:15 Carvedilol 12.5 Mg Tablet PO Not Given Q12HR GEORGIE Cyanocobalamin 1,000 mcg 03/01/23 09:00 03/04/23 09:47 Cyanocobalamin 1,000 Mcg Tablet PO 1,000 mcg QAM GEORGIE Administration Sodium Chloride 1,000 mls @ 75 mls/hr 02/27/23 18:00 02/28/23 06:23 Normal Saline Iv IV CONT 75 mls/hr .[id number] GEORGIE Administration Melatonin 3 mg 02/28/23 22:03 03/04/23 20:48 Melatonin 3 Mg Tablet PO 3 mg HS PRN Administration Insomnia Midodrine 10 mg 02/28/23 13:00 03/04/23 17:04 Midodrine Hcl 10 Mg Tablet PO 10 mg TID GEORGIE Administration Ondansetron HCl 4 mg 02/27/23 17:59 Ondansetron Inj 4 Mg/2 Ml Vial IV PUSH Q4H PRN Nausea Pantoprazole Sodium 40 mg 02/28/23 09:00 03/04/23 09:47 Pantoprazole 40 Mg Tablet PO 40 mg DAILY GEORGIE Administration Sucralfate 1 gm 02/27/23 23:34 02/28/23 11:08 Sucralfate 1 Gm Tablet PO 1 gm DAILY PRN Administration Acid Reflux Radiology Results: ITS Impressions Chest X-Ray 02/27/23 18:22 Impression: 1: No acute cardiopulmonary disease. Labs Labs: Laboratory Results - last 24 hr 03/04/23 03/04/23 03/04/23 05:13 05:14 16:46 WBC 2.1 L RBC 2.76 L Hgb 8.4 L Hct 26.4 L MCV 95.7 MCH 30.4 MCHC 31.8 L RDW 17.8 H Plt Count 43 L MPV 11.1 H Immature Gran % (Auto) 0.0 Neut % (Auto) 33.8 L Lymph % (Auto) 47.1 H [place] % (Auto) 12.9 H Eos % (Auto) 5.7 H Baso % (Auto) 0.5 Lymph # (Auto) 0.99 [place] # (Auto) 0.3 Eos # (Auto) 0.1 Baso # (Auto) 0.0 Abs Immat Gran (auto) 0.00 Absolute Neuts (auto)
[2023-03-05] MEDS: CYANOCOBALAMIN 1,000 MCG TABLET 1000 MCG PO (08:20)
[2023-03-05] MEDS: MIDODRINE HCL 10 MG TABLET PO ×3 (08:20→17:27)
[2023-03-05] MEDS: PANTOPRAZOLE 40 MG TABLET PO (08:20)
--- NOTE | 2023-03-05 11:18 | PM.DS ---
DS: Summary Time Spent with Patient Time attestation: Total time spent providing and/or coordinating discharge services: DS: Data Data Completed and Pending Pending studies at discharge: Pending at discharge 03/04/23 17:25 Cytology [PTH] Routine Labs on day of discharge: Labs from last 24 hours 03/05/23 03/04/23 03/04/23 04:38 16:46 05:14 WBC 2.5 L RBC 2.96 L Hgb 9.0 L Hct 28.2 L MCV 95.3 MCH 30.4 MCHC 31.9 L RDW 18.5 H Plt Count 46 L MPV TNP Immature Gran % (Auto) 0.4 Neut % (Auto) 39.8 L Lymph % (Auto) 41.7 Bar[place] % (Auto) 14.2 H Eos % (Auto) 3.9 Baso % (Auto) 0.0 L Lymph # (Auto) 1.06 Barren # (Auto) 0.4 Eos # (Auto) 0.1 Baso # (Auto) 0.0 Abs Immat Gran (auto) 0.01 Absolute Neuts (auto) 1.0 L Absolute Nucleated RBC 0.0 Nucleated RBC % 0.0 % Immature Plt Fraction 7.3 Absolute Retic 0.05 Percent Retic 1.84 Immature Retic Fraction 43.8 H Retic Hgb Content 39.8 H Sodium 140 Potassium 5.0 Chloride 109 H Carbon Dioxide 27 Anion Gap 4 L BUN 19 Creatinine 1.10 Estim Creat Clear Calc 55 Estimated GFR > 60 Glucose 88 Calcium 8.1 L Iron 34 L TIBC 213 L % Saturation 16 L Ferritin 272.00 H Total Bilirubin 1.3 AST 49 ALT 42 Alkaline Phosphatase 66 Lactate Dehydrogenase 873 H Total Protein 6.0 L Albumin 2.6 L Vitamin B12 828.0 RBC Folate Pending Hematocrit Pending HIV 1&2 Ab/P24 Ag 4thGn Negative BRIJESH, IgG Interpret Negative BRIJESH, Poly Interpret Neg BRIJESH, Complement Interp Negative Indirect Antiglob Test Negative Preliminary micro results at discharge 02/27/23 18:06 Blood Culture - Preliminary Blood Discharge Plan Discharge Consulting providers: Kyle Saleh; Jatin Altamirano Patient Disposition: Home Health Service Discharge Instructions: Per Care Coordination Patient has been accepted to have [facility] for RN, PT, OT [phone]. [facility] will call to arrange a time they will see you in your home. Patient Instructions: Antibiotic Form Stand Alone Forms: General Discharge Information Discharge Medications: No Action furosemide 40 mg tablet 40 mg PO DAILY carvedilol 12.5 mg tablet 12.5 mg PO BID sucralfate 1 gram tablet 1 g PO DAILY PRN (Reason: Acid Reflux) spironolactone 25 mg tablet 25 mg PO DAILY pantoprazole 40 mg tablet,delayed release (DR/EC) 40 mg PO DAILY aluminum hydrox-magnesium carb Tablet,Chewable 1 tablet PO PRN PRN (Reason: Acid Reflux) Gas Relief Extra Strength 1 tablet PO PRN PRN (Reason: gas relief) aspirin [Adult Low Dose Aspirin] 81 mg Tablet,Delayed Release (Dr/Ec) 81 mg PO DAILY metoprolol tartrate 25 mg Tablet 25 mg PO BID amoxicillin 875 mg tablet 875 mg PO Q12H Qty: 10 0RF ondansetron 4 mg tablet,disintegrating 4 mg PO Q8H PRN (Reason: nausea and vomiting) Qty: 10 0RF Date of admission: 03/01/23 07:59 Primary Care Provider: Fanny,Niurka Bender Admitting Provider: Cabrera Moeller Attending physician on admission: Annamaria Barnard Condition: Stable
--- NOTE | 2023-03-05 15:51 | PM.IMPN ---
Progress Note: A&P Assessment and Plan (1) Syncope: Code(s): R55 - Syncope and collapse Status: Acute Assessment and Plan: Patient presented to the ED on 02/27/2023 due to syncope. Patient was sitting down when he had syncopal episode. There was no fall or trauma. -echo unremakrable -Pt is significantly orthostatic. Continue fernando hose. Continue minodrine. -Holding coreg and diuretics d/t OH. On coreg for portal hypertension. -PT/OT to continue. Patient was somewhat symptomatic today, would prefer to recheck orthostatics this evening and in the am. (2) Orthostatic hypotension: Code(s): I95.1 - Orthostatic hypotension Status: Acute Assessment and Plan: - OH likely 2/2 to carvediolol and diuretics which are held. His orthostatics this am were low normal but stable over the three measurements. He was mildly symptomatic. - Cont. midodrine TID currently at 10mg. Would like to perform a slow wean on this over the course of the next week, much of which could be done as an outpatient, provided close f/u can be achieved. Family has a bp cuff and patient is familiar with its use. - Cont. FERNANDO hose. - Cont. to hold coreg/diuretics. Close hepatology f/u. (3) Dehydration: Code(s): E86.0 - Dehydration Status: Acute Assessment and Plan: Resolved. (4) Pancytopenia: Code(s): D61.818 - Other pancytopenia Status: Acute Assessment and Plan: Likely 2/2 underlying liver disease. - Hematology following, appreciate their recommendations - will add the haptoglobin and reticulocyte count they had requested yesterday to be drawn in the AM. (5) Neutropenia: Code(s): D70.9 - Neutropenia, unspecified Status: Acute Assessment and Plan: ANC 1,000 today. Stable. (6) Cirrhosis: Code(s): K74.60 - Unspecified cirrhosis of liver Status: Acute Assessment and Plan: GI consulted and appreciate their recommendations. -Hemochromatosis is being worked up. -Positive Hepatitis C, has GI f/u o/p. (7) Anemia: Code(s): D64.9 - Anemia, unspecified Status: Acute Assessment and Plan: Hgb Stable at 9.0, no shortness of breath or chest pain. - Known varices with recent clipping. (8) B12 deficiency: Code(s): E53.8 - Deficiency of other specified B group vitamins Status: Acute Assessment and Plan: B12 found to be <159 B12 injection x1 given. Recommend weekly injections for 1 month. Oral supplement also started. (9) Gastric antral vascular ectasia: Code(s): K31.819 - Angiodysplasia of stomach and duodenum without bleeding Status: Acute Assessment and Plan: As above Plan I had a detailed discussion on plan for management with the patient and his , and then again with the patient, his , and his daughters. I explained the current workup/treatment plans. I discussed the need for ongoing care and specialist consultation. All questions were answered and the discussions in combination were >30 minutes in duration. Time Spent With Patient Time with patient: Greater than 35 minutes Subjective Date/time seen: 03/05/23 15:51 Interval history: 67 year old male with presenting complaint of syncope and orthostatic hypotension. Today he states he has felt somewhat symptomatic with being up - although he notes that he is somewhat concerned/anxious about his disposition planning which may be contributing. Review of Systems Review of Systems: All systems reviewed & are unremarkable except as noted in HPI and below Exam Narrative: GENERAL APPEARANCE: Appears to be in no acute distress. HEAD: normocephalic atraumatic EYES: PERRL, EOMI. Vision grossly intact. ENT: Hearing grossly intact, no nasal discharge NECK: Neck supple, trachea midline. CARDIAC: Normal S1/S2. Rhythm is regular. No murmurs, rubs, or gallops. No cyanosis or pallor. Extremities
[2023-03-05] MEDS: MAG HYDROX/AL HYDROX/SIMETH 30 ML UDC 15 ML PO (20:32)
[2023-03-05] MEDS: MELATONIN 3 MG TABLET PO (20:32)
[2023-03-06] VITALS: PULSE 55
[2023-03-06 04:00] VITALS: PULSE 77
[2023-03-06 06:00] VITALS: BP 92/52; PULSE 67; RESP 18; TEMP 37; O2SAT 99
[2023-03-06 06:13] LABS: Eosinophils Absolute Auto 0.1 K/mm3 (0-0.3); Eosinophils Percent Auto 5.3 % (0-4.4); Hematocrit 28.2 % (42.0-52.0); Hemoglobin 9.1 g/dL (14.0-18.0); Immature Granulocyte Absolute 0.01 K/mm3 (0.00-0.031); Immature Granulocyte Percent A 0.4 % (0-0.5); Immature Platelet Fraction Pct 7.2 % (0.9-11.2); Immature Reticulocyte Fraction 18.6 % (3.0-15.9); Lymphocytes Absolute Auto 0.97 K/mm3 (0.9-3.2); Lymphocytes Percent Auto 42.5 % (18.3-44.2); Mean Corpuscular HGB Conc 32.3 g/dl (32-36); Mean Corpuscular Volume 95.9 fl (80-100); Monocytes Absolute Auto 0.3 K/mm3 (0.1-0.6); Monocytes Percent Auto 14.9 % (2.6-8.5); Neutrophils Absolute Auto 0.8 K/mm3 (1.3-6.7); Neutrophils Percent Auto 36.9 % (45.5-73.1); Platelet Count Result 51 k/mm3 (150-375); Red Blood Count 2.94 M/mm3 (4.6-6.20); Red Cell Distribution Width 19.8 % (11.5-14.5); Reticulocyte Hemoglobin Conten 38.2 pg (28.2-35.7); Reticulocyte Percent 7.88 % (0.7-4.3); Reticulocytes Absolute 0.23 M/mm3 (0.02-0.1); White Blood Count 2.3 K/mm3 (4.5-10.0)
[2023-03-06 06:18] LABS: Alanine Aminotransferase 41 U/L (6-50); Albumin Level 2.5 g/dL (3.5-5.1); Alkaline Phosphatase 68 U/L (38-126); Anion Gap 5 mmol/L (8-16); Aspartate Amino Transferase 49 U/L (17-59); Bilirubin,Total 1.4 mg/dL (0.2-1.3); Blood Urea Nitrogen 19 mg/dL (9-20); Carbon Dioxide 24 mmol/L (22-30); Chloride 111 mmol/L (98-107); Estimated CRCL calculation 60 ml/min; Estimated Glomerular Filt Rate > 60; Glucose 95 mg/dL (65-110); Sodium 140 mmol/L (137-145)
[2023-03-06 06:53] LABS: Ovalocytes 2+ (NORMAL); Platelet Estimate Decreased (Adequate)
[2023-03-06 06:54] LABS: Schistocytes None Seen (NORMAL)
[2023-03-06 08:00] VITALS: PULSE 68
[2023-03-06] MEDS: CYANOCOBALAMIN 1,000 MCG TABLET 1000 MCG PO (08:22)
[2023-03-06] MEDS: PANTOPRAZOLE 40 MG TABLET PO (08:22)
[2023-03-06] MEDS: MIDODRINE HCL 10 MG TABLET PO (08:22)
[2023-03-06 09:00] VITALS: BP 125/65; PULSE 69; RESP 15; TEMP 36.6; O2SAT 99
[2023-03-06 10:09] VITALS: BP 114/64; BP 94/50; PULSE 70; PULSE 77; RESP 15; RESP 16; O2SAT 98; O2SAT 99
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
[2023-03-08 19:16] LABS: Red Blood Cell Folate 688 ng/mL RBC (>280)
[2023-03-10 05:30] LABS: Haptoglobin <8 mg/dL (43-212)
== END 2023-03-06 12:18 | disposition home health service (06) | DRG 312 ==
LOC: ANHED 14:15 → ANH2MED 18:31
PROVIDERS: Internal Medicine Critical Care Medicine; Internal Medicine Gastroenterology; Nurse Practitioner Family; Physician Assistant; Student in an Organized Health Care Education/Training Program; Admitting Provider Family Medicine; Emergency Provider Emergency Medicine; PCP Family Medicine; Visit Provider Nurse Practitioner
DX: I95.1 Orthostatic hypotension (principal); D61.818 Other pancytopenia; N17.9 Acute kidney failure, unspecified; K76.6 Portal hypertension; R18.8 Other ascites; T50.1X5A Adverse effect of loop [high-ceiling] diuretics, initial encounter; K74.69 Other cirrhosis of liver; E86.0 Dehydration; E53.8 Deficiency of other specified B group vitamins; K31.819 Angiodysplasia of stomach and duodenum without bleeding; B19.20 Unspecified viral hepatitis C without hepatic coma; E78.5 Hyperlipidemia, unspecified; I10 Essential (primary) hypertension; Z86.73 Personal history of transient ischemic attack (TIA), and cerebral infarction without residual deficits; Z95.2 Presence of prosthetic heart valve; Z87.19 Personal history of other diseases of the digestive system
CPT/HCPCS: 36415; 36430; 71046; 80053; 81001; 81256; 82274; 82607; 82728; 82746; 82747; 83010; 83540; 83550; 83615; 83735; 84443; 84466; 85014; 85018; 85025; 85027; 85046; 85055; 85610; 85730; 86703; 86850; 86880; 86900; 86901; 86923; 87040; 87086; 87088; 93005; 93306; 96360; 96361; 97161; 99285; A9270; G0378; G0432; J3420; J7030; J7050; P9016

== ENCOUNTER 2023-03-08 13:35 | Outpatient (CLI) | payer MEDICARE, MEDICAID, SELFPAY | END 2023-03-08 13:36 | disposition home or self-care (01) | PROVIDERS: PCP Family Medicine; Visit Provider Student in an Organized Health Care Education/Training Program | DX: D61.818 Other pancytopenia (principal) | CPT/HCPCS: 88184; 88185 ==

== ENCOUNTER 2023-03-23 15:30 | Outpatient (CLI) | payer MEDICARE, MEDICAID, SELFPAY ==
[2023-03-23 15:53] LABS: Basophils Percent Auto 0.8 % (0.2-1.2); Eosinophils Absolute Auto 0.2 K/mm3 (0-0.3); Eosinophils Percent Auto 3.7 % (0-4.4); Hematocrit 38.5 % (42.0-52.0); Hemoglobin 12.5 g/dL (14.0-18.0); Immature Granulocyte Absolute 0.01 K/mm3 (0.00-0.031); Immature Granulocyte Percent A 0.2 % (0-0.5); Lymphocytes Absolute Auto 1.06 K/mm3 (0.9-3.2); Lymphocytes Percent Auto 21.9 % (18.3-44.2); Mean Corpuscular HGB Conc 32.5 g/dl (32-36); Mean Corpuscular Hemoglobin 31.7 pg (26-34); Mean Corpuscular Volume 97.7 fl (80-100); Mean Platelet Volume 11.8 fl (7.4-10.4); Monocytes Absolute Auto 0.4 K/mm3 (0.1-0.6); Neutrophils Absolute Auto 3.2 K/mm3 (1.3-6.7); Neutrophils Percent Auto 65.4 % (45.5-73.1); Platelet Count Result 96 k/mm3 (150-375); Red Blood Count 3.94 M/mm3 (4.6-6.20); Red Cell Distribution Width 16.7 % (11.5-14.5); White Blood Count 4.9 K/mm3 (4.5-10.0)
[2023-03-23 16:54] LABS: Iron 81 ug/dL (49-181)
[2023-03-23 16:57] LABS: Alanine Aminotransferase 45 U/L (6-50); Albumin Level 3.1 g/dL (3.5-5.1); Alkaline Phosphatase 80 U/L (38-126); Anion Gap 7 mmol/L (8-16); Aspartate Amino Transferase 53 U/L (17-59); Bilirubin,Total 1.3 mg/dL (0.2-1.3); Blood Urea Nitrogen 16 mg/dL (9-20); Calcium 8.4 mg/dL (8.4-10.2); Carbon Dioxide 23 mmol/L (22-30); Chloride 110 mmol/L (98-107); Estimated Glomerular Filt Rate > 60; Glucose 107 mg/dL (65-110); Sodium 140 mmol/L (137-145)
[2023-03-23 17:09] LABS: Percent Iron Saturation 31 % (20-50)
[2023-03-23 18:24] LABS: Folic Acid 9.1 ng/mL (2.76->20)
[2023-03-27 17:43] LABS: Methylmalonic Acid 388 nmol/L (87-318)
[2023-03-30 14:53] LABS: Soluble Transferrin Receptor 2.12 mg/L (0.76-1.76)
== END 2023-03-23 15:31 | disposition home or self-care (01) ==
LOC: ANHLAB 15:32
PROVIDERS: Nurse Practitioner Family; PCP Family Medicine; Visit Provider Internal Medicine Hematology & Oncology
DX: D50.9 Iron deficiency anemia, unspecified (principal)
CPT/HCPCS: 36415; 80053; 82607; 82728; 82746; 83540; 83550; 83921; 84238; 85025

== ENCOUNTER 2023-05-04 14:50 | Emergency (ER) | payer MEDICARE, MEDICAID, SELFPAY ==
--- NOTE | ~2023-05-04 | US_ITS ---
EXAMINATION: US paracentesis abd w/image DATE: 05/04/2023 17:13 INDICATION: Ascites. TECHNIQUE: The procedure and its risks, benefits, and alternatives were discussed with the patient. P otential risks discussed included bleeding and infection. The skin was prepped and draped in sterile fashion. 1% lidocaine was used for local anesthesia. Under ultrasound guidance, a 5 Fr catheter with trochar was advanced into the ascites in the right lower quadrant. Fluid was aspirated. The catheter was removed, and a dressing was applied. There were no immediate complications. FINDINGS: Ultrasound images demonstrate ascites and the catheter within the fluid. IMPRESSION: 1. Successful ultrasound-guided paracentesis yielding 5000 mL of yellow fluid. Reviewed, dictated and finalized at location A. [facility]TER
[2023-05-04 14:56] VITALS: BP 140/95; PULSE 85; RESP 16; TEMP 36.8; O2SAT 98
[2023-05-04 15:13] LABS: Basophils Percent Auto 0.6 % (0.2-1.2); Eosinophils Absolute Auto 0.2 K/mm3 (0-0.3); Eosinophils Percent Auto 3.6 % (0-4.4); Hematocrit 41.8 % (42.0-52.0); Hemoglobin 13.8 g/dL (14.0-18.0); Immature Granulocyte Absolute 0.01 K/mm3 (0.00-0.031); Immature Granulocyte Percent A 0.2 % (0-0.5); Immature Platelet Fraction Pct 4.6 % (0.9-11.2); Lymphocytes Absolute Auto 1.02 K/mm3 (0.9-3.2); Lymphocytes Percent Auto 19.3 % (18.3-44.2); Mean Corpuscular Hemoglobin 31.8 pg (26-34); Mean Corpuscular Volume 96.3 fl (80-100); Mean Platelet Volume 11.3 fl (7.4-10.4); Monocytes Absolute Auto 0.6 K/mm3 (0.1-0.6); Neutrophils Absolute Auto 3.5 K/mm3 (1.3-6.7); Neutrophils Percent Auto 65.3 % (45.5-73.1); Platelet Count Result 118 k/mm3 (150-375); Red Blood Count 4.34 M/mm3 (4.6-6.20); Red Cell Distribution Width 13.7 % (11.5-14.5); White Blood Count 5.3 K/mm3 (4.5-10.0)
[2023-05-04 15:23] LABS: Alanine Aminotransferase 34 U/L (6-50); Albumin Level 3.1 g/dL (3.5-5.1); Alkaline Phosphatase 76 U/L (38-126); Anion Gap 3 mmol/L (8-16); Aspartate Amino Transferase 49 U/L (17-59); Bilirubin,Total 0.8 mg/dL (0.2-1.3); Blood Urea Nitrogen 14 mg/dL (9-20); Calcium 8.3 mg/dL (8.4-10.2); Carbon Dioxide 22 mmol/L (22-30); Chloride 108 mmol/L (98-107); Estimated CRCL calculation 63 ml/min; Estimated Glomerular Filt Rate > 60; Glucose 130 mg/dL (65-110); Potassium 4.3 mmol/L (3.4-5.0); Sodium 133 mmol/L (137-145)
[2023-05-04 15:36] LABS: INR 1.4; Prothrombin Time 17.5 Seconds (11.1-14.7)
--- NOTE | 2023-05-04 15:43 | ED.GENADULT ---
HPI - General Adult General Chief complaint: Unspecified Stated complaint: abdominal swelling Time Seen by Provider: 05/04/23 14:53 History of Present Illness HPI narrative: patient is a 68-year-old male who presents the ER with abdominal distension. Last paracentesis was in February. It was in [facility] where he sees a scale manager. He is supposed to follow-up in [place] next week. He reports his abdomen has become so distended he cannot wait and leave would like to try to get a paracentesis. He has no pain or fever. He just has lot of discomfort due to the fullness of his abdomen. He reports frequent belching. No CP. No blood thinners. Related Data Home Medications Medication Instructions Recorded Confirmed Gas Relief Extra Strength 1 tablet PO PRN PRN gas relief 02/27/23 02/27/23 aluminum hydrox-magnesium carb 1 tablet PO PRN PRN Acid Reflux 02/27/23 02/27/23 chewable tablet carvedilol 12.5 mg tablet 12.5 mg PO BID 02/27/23 02/27/23 furosemide 40 mg tablet 40 mg PO DAILY 02/27/23 02/27/23 pantoprazole 40 mg tablet,delayed 40 mg PO DAILY 02/27/23 02/27/23 release spironolactone 25 mg tablet 25 mg PO DAILY 02/27/23 02/27/23 sucralfate 1 gram tablet 1 g PO DAILY PRN Acid Reflux 02/27/23 02/27/23 Allergies Allergy/AdvReac Type Severity Reaction Status Date / Time No Known Allergies Allergy Verified 03/01/23 09:28 Review of Systems Review of Systems: All systems reviewed & are unremarkable except as noted in HPI and below Constitutional: Constitutional: Reports no additional constitutional complaints Cardiovascular: Cardiovascular: Reports no additional cardiovascular complaints Respiratory: Respiratory: Reports no additional respiratory complaints Gastrointestinal: Gastrointestinal: Denies abdominal pain, Reports bloating, Denies constipation, Denies nausea and Denies vomiting Genitourinary: Genitourinary: Reports no additional male genitourinary complaints [facility] Past Medical History Medical History (Updated 05/04/23 @ 18:44 by Galen Barrera MD) Ascites Chronic hepatitis C with cirrhosis Cirrhosis Esophageal varices Esophageal varices determined by endoscopy Hepatitis C Hyperlipidemia Hyperlipidemia Hypertension Hypertension Occult blood in stools Pancytopenia Stroke Surgical History Surgical History (Updated 03/04/23 @ 12:02 by Jatin Altamirano MD) Aortic valve replaced History of aortic valve replacement with bioprosthetic valve History of esophagogastroduodenoscopy (EGD) Status post aortic dissection repair Family History Family History (System 03/01/23 @ 09:28 by Husam Dan) Mother Ovarian cancer Father Cirrhosis Other Hypertension Liver disease Unknown family medical history Social History Social History (System 03/01/23 @ 09:28 by Husam Dan) Social History: Lifelong nonsmoker. No alcohol or drug use. Lives at home with his and daughter. Full code. He nominated his to be the individual would make medical decisions for him if he is unable. Smoking status: Never smoker Alcohol intake: never Alcohol use details: No alcohol 12 years. Substance use: never Substance use type: does not use Do You Feel Safe in your Home?: Yes Lack of Transportation: No Lack of Food: Never True Current Housing: I Have Housing Concerned About Future Housing: No Difficulty Paying Gas/Electric Bills: No Difficulty Paying for Meds: No Currently Unemployed: No Education: Decline to Answer Difficulty w/ Childcare or Family Care: No Living arrangements: with family Additional living arrangements comments: Lives with spouse in [place]. Additional occupation/education comments: Retired. Gender identity (if verbalized by the patient): Male Spiritual care concerns: No Exam Narrative: GENERAL: Well-appearing, well-nourished, and in no acute distress. HEAD: Normocephalic, atraumatic. ENT:
--- NOTE | 2023-05-04 16:20 | PC.NURSE ---
Pt to US
--- NOTE | 2023-05-04 17:10 | PC.NURSE ---
Pt returned from US
[2023-05-04 17:11] VITALS: BP 125/79; PULSE 64; RESP 11; O2SAT 100
[2023-05-04 19:04] VITALS: BP 117/75; PULSE 63; RESP 11; TEMP 36.6; O2SAT 96
== END 2023-05-04 19:19 | disposition home or self-care (01) ==
PROVIDERS: Emergency Provider Emergency Medicine; PCP Family Medicine
DX: R18.8 Other ascites (principal); B18.2 Chronic viral hepatitis C; K74.60 Unspecified cirrhosis of liver; E78.5 Hyperlipidemia, unspecified; I10 Essential (primary) hypertension; Z86.73 Personal history of transient ischemic attack (TIA), and cerebral infarction without residual deficits; Z95.2 Presence of prosthetic heart valve
CPT/HCPCS: 36415; 49083; 80053; 85025; 85055; 85610; 85730; 99283

== ENCOUNTER 2024-02-08 15:30 | Outpatient (RCR) | payer MEDICARE, MEDICAID, SELFPAY ==
--- NOTE | 2023-12-08 14:22 | OPREHPOC ---
Outpatient Therapy Plan of Care This is a Multidisciplinary Plan of Care that may contain components documented by all disciplines (PT, OT, and ST.) PT Problem 1 PT Problem #1 Knowledge Deficit PT Goal 1 Goal / Goal Update *indep with HEP Target Visit 7 PT Problem 2 PT Problem #2 Impaired Strength PT Goal 1 Goal / Goal Update increase LE strength, to improve mobility and dynamic balance skills, to decrease risk for falls : 1* pt perform 15 reps of mat strengthening exercises with 3# ankle wt 2* bilateral leg press 80# x 10 reps single leg standing with good stability 3* R 20 seconds 4* L 30 seconds Target Visit 7 PT Problem 3 PT Problem #3 Impaired Functional Mobil PT Goal 1 Goal / Goal Update 1* 5 reps sit/stand without use of UE in 15 seconds 2* Santiago balance score of 56/56 3* 2 minute walking test distance of 525' 4* pt report NO falls Target Visit 7
--- NOTE | 2023-12-08 14:22 | PTOPEVAL1 ---
Assessment and note entered by Mary Ann Nice, PT Evaluation Information Assessment Status Evaluation ICD-10 Condition Codes (PT) Difficulty Walking R26.2,R26.9,Weakness R53.1 Other ICD-10 Condition Codes ( pre transplant evaluation for liver Z 818; PT) hepatocellular carcinoma C22. Onset September 2023 Subjective Information more weakness in September and fell, is feeling better and getting some strength built up; was having medical problems with blood pressure too low; loss 65# when ill; was using the walker and wheelchair but have not used for the past month; about every 10 days have paracentesis/ drain the fluid; Activity: indep with bathing, dressing; does some light cooking and home tasks; can be up about 10-15 minutes, then have to sit and rest; do some sitting exercises at home, and walking as he can; home with , no stairs. Goal: get stronger to be able to get liver transplant. Reported Pain Level Pain Score 5: Self Report Additional Pain Score Comments overall body aches and pains;shoulders, knee pain; does not take any medicine for pain; Assessment PT Clinical Summary Adair has the diagnosis of pre-evaluation for liver transplant. In October, he was weak and had a fall. He is more medically stable and feeling better. And has started being more active, with walking, but does not have any exercises. His was present and supportive of pt. With the evaluation: pt has overall decrease in activity level due to medical issues; 5 reps sit/ stand time of 20 seconds, 2 minute walking test distance of 450' without assistive device, Santiago balance/gait score fo 53/56 and leg press bilateral with 70# x 10 reps; At the end of the session, he reported fatigue. Skilled PT services are indicated to increase LE strength, gait and mobility skills, with education for HEP, to increase his strength and prepare him for surgery. Plan of Care Interventions Neuro Re-education,Patient/Caregiver Education, Therapeutic Activities,Therapeutic Exercise PT Services Indicated Yes Treatment Frequency and 1-2x/wk for 6 visits Duration These treatments will address the objective and functional deficits as defined above. The patient will be advanced safely and appropriately in order for the patient to progress towards his/her prior level of function. Additional exercises will be introduced and as well as a comprehensive home exercise program upon discharge, if needed, ?to ensure carryover of functional gains achieved in the clinic. This treatment plan has been reviewed and agreement upon by the patient.
--- NOTE | 2023-12-23 14:39 | PCPTNOTE ---
Called and canceled, reason unknown. AKS
--- NOTE | 2024-01-02 15:38 | PCPTNOTE ---
canceled today's reevaluation appt due to another appt.
--- NOTE | 2024-02-08 16:10 | PTOPDC ---
Assessment and note entered by Mary Ann Nice, PT Discharge Report Assessment Status Discharge ICD-10 Condition Codes (PT) Difficulty Walking R26.2,R26.9,Weakness R53.1 Other ICD-10 Condition Codes ( pre transplant evaluation for liver Z 818; PT) hepatocellular carcinoma C22. Onset September 2023 Subjective Information per pt and : is walking better and getting stronger; no falls; have been doing the exercises at home; continues to go every 2 weeks for abdomen drainage; taking pills for latent TB; Reported Pain Level Pain Score 5: Self Report Additional Pain Score Comments back and calves Assessment PT Clinical Summary Adair has received 5 PT sessions. Compared to the initial evaluation: Santiago balance score improved to 56/56; 5 reps sit/stand time was 2 seconds more; 2 minute walking test distance from 450' to 575'; increase LE strength with bilateral leg press 70# x 10 reps, now 80# x 20 reps; mat exercise of SLR and side lying hip abduction with 3# ankle wt x 20 reps; single leg standing on R 15 and L 18 seconds with good stability; education for HEP and increase activity as tolerated. The goals were achieved, except single leg standing time and 5 reps sit/stand time. Discharge PT services. He is to continue with HEP and increasing activity as tolerated. Plan of Care PT Services Indicated No
== END 2024-02-09 10:53 | disposition home or self-care (01) ==
LOC: ANHPT 15:30
PROVIDERS: PCP Family Medicine; Visit Provider Internal Medicine Gastroenterology
DX: R26.9 Unspecified abnormalities of gait and mobility (principal); R26.2 Difficulty in walking, not elsewhere classified; R53.1 Weakness; C22.0 Liver cell carcinoma; K72.90 Hepatic failure, unspecified without coma; K74.60 Unspecified cirrhosis of liver
CPT/HCPCS: 97110; 97161; 97530

== ENCOUNTER 2025-03-04 15:00 | Outpatient (RCR) | payer MEDICARE, MEDICAID, SELFPAY ==
--- NOTE | 2024-12-20 14:46 | OPREHPOC ---
Outpatient Therapy Plan of Care This is a Multidisciplinary Plan of Care that may contain components documented by all disciplines (PT, OT, and ST.) PT Problem 1 PT Problem #1 Knowledge Deficit PT Goal 1 Goal / Goal Update Stephens with HEP Target Visit 4 PT Problem 2 PT Problem #2 Impaired Gait PT Goal 1 Goal / Goal Update 1. Improve Tinetti score by 4 points to reduce gross fall risk 2. Improve 2 minute walk test to 600 feet for improved endurance and gait speed to reduce fall risk Target Visit 10 PT Problem 3 PT Problem #3 Impaired Strength PT Goal 1 Goal / Goal Update 1. Improve L hip flexion strength to 4+/5 to help with foot clearance 2. Improve katie hip abduction strength to 4/5 to improve lateral stability with functional activity Target Visit 10 PT Problem 4 PT Problem #4 Impaired Functional Mobility PT Goal 1 Goal / Goal Update 1. Patient will demonstrate ability to perform squat floor retrieval Target Visit 10
--- NOTE | 2024-12-20 14:46 | PTOPEVAL1 ---
Assessment and note entered by Imtiaz Ayala, PT Evaluation Information Assessment Status Evaluation Diagnosis R 54 Frailty, C22.0 ICD-10 Condition Codes (PT) Difficulty Walking R26.2,Weakness R53.1 Onset 2022 Subjective Information Reports that he wakes up around 7 to take meds a tries to sleep a little longer after that. He tries to get up and moving around 10. Reports that he has about 2 good days a week, but even on a good day he needs frequent rest breaks. He has history of stroke in 2010. Feels he probably cant walk more than about 150 feet. He also has bilateral knee pain and back pain. Knees and back hurt enough to keep him up at night at times making him more tired during the day. Also has frequent headaches. BP has been consistently good. Patient would like to improve his balance. Reported Pain Level Pain Score 4: Self Report Assessment PT Clinical Summary Patient presents with significant weakness of the left hip, gross deconditioning, and fall risk with below average functional assessment gait and balance measures. Patient will benefit from skilled therapy to address these deficits for gross functional conditioning and strengthening in preparation for possible liver transplant as soon as available. Plan of Care Interventions Gait Training,Manual Therapy,Neuro Re-education, Therapeutic Activities,Therapeutic Exercise PT Services Indicated Yes Treatment Frequency and 2x/week for 10 visits Duration These treatments will address the objective and functional deficits as defined above. The patient will be advanced safely and appropriately in order for the patient to progress towards his/her prior level of function. Additional exercises will be introduced and as well as a comprehensive home exercise program upon discharge, if needed, ?to ensure carryover of functional gains achieved in the clinic. This treatment plan has been reviewed and agreement upon by the patient.
--- NOTE | 2025-01-04 14:40 | PCPTNOTE ---
pt canceled today's appt due to illness.
--- NOTE | 2025-01-24 15:31 | PTOPPROG ---
Assessment and note entered by Imtiaz Ayala, PT Evaluation Information Assessment Status Progress Diagnosis R 54 Frailty, C22.0 ICD-10 Condition Codes (PT) Difficulty Walking R26.2,Weakness R53.1 Onset 2022 Subjective Information Reports that he has been having a lot of body pain all the time. He has pain in the calves a lot right now which affect his walking. Reports that after exercise he has been having some shaking and cramping in his legs. He has been sick off and on during this course of therapy. Feels that his body is fatigued all of the time. Patient and would like to continue therapy at this time. Assessment PT Clinical Summary Patient has seen significant improvement over all aspects of his functional testing at this time. Continues to show endurance issues but his 2 minute walk test figures were improved. Will continue to benefit form skilled therapy to work through functional strengthening and continued endurance training. Plan of Care Interventions Gait Training,Manual Therapy,Neuro Re-education, Therapeutic Activities,Therapeutic Exercise PT Services Indicated Yes Treatment Frequency and 2x/week for 8 visits Duration These treatments will address the objective and functional deficits as defined above. The patient will be advanced safely and appropriately in order for the patient to progress towards his/her prior level of function. Additional exercises will be introduced and as well as a comprehensive home exercise program upon discharge, if needed, ?to ensure carryover of functional gains achieved in the clinic. This treatment plan has been reviewed and agreement upon by the patient.
--- NOTE | 2025-02-25 15:02 | PCPTNOTE ---
No call no show, reason unknown. AKBetty
--- NOTE | 2025-03-04 17:29 | PTOPDC ---
Assessment and note entered by Imtiaz Ayala, PT Evaluation Information Assessment Status Discharge Diagnosis R 54 Frailty, C22.0 ICD-10 Condition Codes (PT) Difficulty Walking R26.2,Weakness R53.1 Onset 2022 Subjective Information Reports that he feels he is doing significantly better at this point. He was very sick last week and was struggling but feels he has recovered. Illness made him feel a bit disoriented. Overall feels he has been doing better but has a lot of medical appointments coming up in March. Plans to discharge for a while at this time and return if needed. Reported Pain Level Pain Score 0: Self Report Assessment PT Clinical Summary Patient has made considerable progress in all aspects of functional at this time. We have even seen progress in strength from last progress note. Patient has reached a good functional level and is appropriate for discharge at this time. Plan of Care PT Services Indicated Yes
== END 2025-03-05 09:34 | disposition home or self-care (01) ==
LOC: ANHPT 15:00
PROVIDERS: PCP Family Medicine; Visit Provider Internal Medicine Gastroenterology
DX: C22.0 Liver cell carcinoma (principal); B19.20 Unspecified viral hepatitis C without hepatic coma; K74.69 Other cirrhosis of liver; Z76.82 Awaiting organ transplant status; Z86.73 Personal history of transient ischemic attack (TIA), and cerebral infarction without residual deficits
CPT/HCPCS: 97110; 97112; 97116; 97140; 97161; 97530; 97750